=== PATIENT | female | born 1965 | race Caucasian/White ===

== ENCOUNTER 2017-01-05 14:08 | Outpatient (CLI) | payer MEDICARE | END 2017-01-05 14:09 | disposition critical access hospital (66) | LOC: EMS 14:08 | PROVIDERS: ATTEND Surgery | DX: J45.909 Unspecified asthma, uncomplicated (principal) | CPT/HCPCS: A0425; A0427 ==

== ENCOUNTER 2017-01-05 14:23 | Inpatient (IN) | payer MEDICARE ==
[~2017-01-05 14:23] MED LIST: AZITHROMYCIN INJ 500 MG in SODIUM CHLORIDE 0.9% 250 ML IV SCH
[2017-01-05] MEDS ORDERED: methylPREDNISolone SUCCINATE 125 MG/2 ML VIAL IVP STA (14:30)
[2017-01-05] MEDS ORDERED: IPRATROPIUM/ALBUTEROL 3 ML NEB INH STA (14:30)
--- NOTE | 2017-01-05 14:32 | ED Physician Documentation ---
PD HPI DYSPNEA - Stated complaint Stated Complaint: ASTHMA ATTACK - History obtained from History obtained from: Patient, EMS - History of Present Illness Timing - onset: Other (51-year-old woman with history of asthma, she says over the last few days her asthma has been exacerbated because she has had a URI and was kicked out of the shelters who has been not wandering the streets at night. She complains of shortness of breath and a dry cough but denies any chest pain or pedal edema. She has had subjective on-and-off fevers.) Review of Systems Ten Systems: 10 systems reviewed and negative Constitutional: reports: Fever, Chills, Myalgias. denies: Fatigue Nose: reports: Rhinorrhea / runny nose Throat: reports: Sore throat Cardiac: denies: Chest pain / pressure Respiratory: reports: Dyspnea, Cough GI: denies: Abdominal Pain PD PAST MEDICAL HISTORY - Past Medical History Past Medical History: Yes Respiratory: Asthma - Present Medications Home Medications: Ambulatory Orders Medication Instructions Recorded Confirmed No Known Home Medications [No 01/05/17 01/05/17 Known Home Medications] - Allergies Allergies/Adverse Reactions: Allergies Allergy/AdvReac Type Severity Reaction Status Date / Time tramadol Allergy Unknown Verified 01/05/17 14:35 - Living Situation Living Arrangement: reports: Homeless - Social History Does the pt smoke?: Yes Smoking Status: Current every day smoker - Family History Family history: reports: Non contributory PD ED PE NORMAL - Vitals Vital signs reviewed: Yes - General General: Alert and oriented X 3, No acute distress, Other (Somewhat agitated, potentially high on something.) - HEENT HEENT: PERRL, EOMI - Neck Neck: Supple, no meningeal sign, No bony TTP - Cardiac Cardiac: RRR, No murmur - Respiratory Respiratory: Other (Poor air motion with mild wheezes, labored breathing) - Abdomen Abdomen: Soft, Non tender - Back Back: No CVA TTP, No spinal TTP - Derm Derm: Normal color, Warm and dry - Extremities Extremities: No edema, No calf tenderness / cord - Neuro Neuro: Alert and oriented X 3, Normal speech - Psych Psych: Normal mood, Normal affect Results - Vitals Vitals: Vital Signs - 24 hr 01/05/17 01/05/17 01/05/17 14:29 14:30 14:45 Temperature 36.7 C Heart Rate 93 98 Respiratory 26 H 24 Rate Blood Pressure 184/102 H O2 Saturation 100 86 L 01/05/17 01/05/17 01/05/17 14:48 15:25 15:34 Temperature Heart Rate 108 H 98 Respiratory 22 22 Rate Blood Pressure O2 Saturation 100 99 01/05/17 01/05/17 01/05/17 15:55 16:10 16:26 Temperature Heart Rate 92 100 Respiratory 22 22 Rate Blood Pressure 195/95 H O2 Saturation 100 98 Oxygen O2 Source Nasal cannula Oxygen Flow Rate 2 - Labs Labs: Laboratory Tests 01/05/17 01/05/17 01/05/17 14:40 14:40 14:40 WBC 10.0 RBC 4.03 L Hgb 10.8 L Hct 32.8 L MCV 81.5 MCH 26.8 L MCHC 32.9 RDW 19.6 H Plt Count 426 MPV 6.3 L Neut # 8.4 H Lymph # 0.8 L [place] # 0.6 Eos # 0.1 Baso # 0.0 Absolute Nucleated RBC 0.00 Nucleated RBC % 0.0 D-Dimer 231.0 VBG pH VBG pCO2 VBG pO2 VBG HCO3 VBG Total CO2 VBG O2 Saturation VBG Base Excess Sodium 132 L Potassium 2.8 L Chloride 93 L Carbon Dioxide 29 Anion Gap 10.0 BUN 12 Creatinine 0.6 Estimated GFR (MDRD) 105 Glucose 120 H Calcium 8.9 Total Bilirubin 0.3 AST 54 H ALT 36 Alkaline Phosphatase 99 Total Protein 8.2 Albumin 3.8 Globulin 4.4 H Albumin/Globulin Ratio 0.9 L Lipase 81 H Urine Opiates Screen Ur Oxycodone Screen Urine Methadone Screen Ur Propoxyphene Screen Ur Barbiturates Screen Ur Tricyclics Screen Ur Phencyclidine Scrn Ur Amphetamine Screen U Methamphetamines Scrn U Benzodiazepines Scrn Urine Cocaine Screen U Cannabinoids Screen 01/05/17 01/05/17 15:47 16:56 WBC RBC Hgb Hct MCV MCH MCHC RDW Plt Count MPV Neut # Lymph # [place] # Eos # Baso # Absolute Nucleated RBC Nucleated RBC % D-Dimer VBG pH 7.437 H VBG pCO2 43.0 VBG pO2 98.7 H VBG HCO3 28.4 H VBG Total CO2 29.7 H VBG O2 Saturation 97.3 H VBG Base Excess 3.7 H Sodium Potassium Chloride Carbon Dioxide Anion Gap BUN Creatinine Estimated GFR (MDRD) Glucose Calcium Total Bilirubin AST ALT Alkaline Phosphatase Total Protein Albumin Globulin Albumin/Globulin Ratio Lipase Urine Opiates Screen NEGATIVE Ur Oxycodone Screen NEGATIVE Urine Methadone Screen NEGATIVE Ur Propoxyphene Screen NEGATIVE Ur Barbiturates Screen NEGATIVE Ur Tricyclics Screen NEGATIVE Ur Phencyclidine Scrn NEGATIVE Ur Amphetamine Screen NEGATIVE U Methamphetamines Scrn POSITIVE H U Benzodiazepines Scrn NEGATIVE Urine Cocaine Screen NEGATIVE U Cannabinoids Screen NEGATIVE - Rads (name of study) 2v chest Radiology: EMP read contemporaneously (LLL PNA) PD MEDICAL DECISION MAKING - ED course ED course: 51-year-old homeless woman with history of asthma presents with asthma exacerbation, fairly labored breathing. She received a DuoNeb in route, however it looks like the nebulizer in route may have been nonfunctional because most of the liquid was still in the chamber. This was repeated on arrival and given over the course of her ED stay a few more nebs with albuterol. She had evidence of pneumonia on chest x-ray and was administered Rocephin and Zithromax for this. She did have episodes of hypoxemia down into the mid 80s, the hospitalist was called for admission at 4:07 PM. - Critical Care Time(min): 35 Time Includes: Direct patient care, Review records, Reassess patient, Document care, Coordinate care, Medical consult Data interpretation: Labs Procedures included in critical care time: Peripheral IV Departure - Departure Disposition: 66 [facility] DC/Xfer Clinical Impression: Hypoxemia Asthma Qualifiers: Asthma severity: moderate Asthma persistence: persistent Asthma complication type: with status asthmaticus Qualified Code(s): J45.42 - Moderate persistent asthma with status asthmaticus Pneumonia Qualifiers: Pneumonia type: due to unspecified organism Laterality: left Lung location: lower lobe of lung Qualified Code(s): J18.1 - Lobar pneumonia, unspecified organism Condition: Serious Discharge Date/Time: 01/05/17 17:50
[2017-01-05 14:44] LABS: BASOPHILS % (AUTO) 0.5 %; EOSINOPHILS # (AUTO) 0.1 10^3/uL (0.0-0.7); EOSINOPHILS % (AUTO) 0.6 %; HCT - HEMATOCRIT 32.8 % (37.0-47.0); HGB - HEMOGLOBIN 10.8 g/dL (12.0-16.0); LYMPHOCYTES # (AUTO) 0.8 10^3/uL (1.5-3.5); LYMPHOCYTES % (AUTO) 8.4 %; MEAN CORPUSCULAR HEMOGLOBIN 26.8 pg (27.0-31.0); MEAN CORPUSCULAR HGB CONC 32.9 g/dL (32.0-36.0); MEAN CORPUSCULAR VOLUME 81.5 fL (81.0-99.0); MEAN PLATELET VOLUME 6.3 fL (7.9-10.8); MONOCYTES # (AUTO) 0.6 10^3/uL (0.0-1.0); MONOCYTES % (AUTO) 6.4 %; NEUTROPHILS # (AUTO) 8.4 10^3/uL (1.5-6.6); NEUTROPHILS % (AUTO) 84.1 %; RED BLOOD COUNT 4.03 10^6/uL (4.20-5.40); RED CELL DISTRIBUTION WIDTH 19.6 % (12.0-15.0)
[2017-01-05] MEDS ORDERED: methylPREDNISolone SUCCINATE 125 MG/2 ML VIAL ONE (14:53)
[2017-01-05] MEDS ORDERED: IPRATROPIUM/ALBUTEROL 3 ML NEB INH ONE (14:54)
[2017-01-05 15:04] LABS: ALBUMIN/GLOBULIN RATIO 0.9 (1.0-2.2); BILIRUBIN,TOTAL 0.3 mg/dL (0.2-1.0); CALCIUM 8.9 mg/dL (8.5-10.3); CREATININE 0.6 mg/dL (0.4-1.0); POTASSIUM 2.8 mmol/L (3.5-5.0); TOTAL PROTEIN 8.2 g/dL (6.7-8.2)
[2017-01-05] MEDS ORDERED: ALBUTEROL NEB 2.5 MG/3 ML INH STA ×2 (15:19→16:04)
[2017-01-05] MEDS ORDERED: ALBUTEROL NEB 2.5 MG/3 ML INH ONE ×2 (15:26→16:12)
[2017-01-05] MEDS ORDERED: POTASSIUM BICARB 25 MEQ TABLET PO STA (15:33)
[2017-01-05] MEDS ORDERED: POTASSIUM BICARB 25 MEQ TABLET PO ONE (15:42)
--- NOTE | 2017-01-05 15:59 | XRAY Preliminary Report ---
Exam: XR CHEST 2 VIEW PA/LAT IMPRESSION: Positive for a basilar opacity in the posterior left lower lobe, suspicious for pneumonia or aspiration. [facility] SITE ID: [id number]
--- NOTE | 2017-01-05 16:01 | XRAY Report ---
EXAM: CHEST RADIOGRAPHY EXAM DATE: 01/05/2017 03:18 PM. CLINICAL HISTORY: Dyspnea. COMPARISON: None. TECHNIQUE: 2 views. FINDINGS: Lungs/Pleura: The lateral image, there is patchy airspace opacity in the left lower lobe. No pleural effusion. There is airway thickening. Negative for pneumothorax. Mediastinum: Heart and mediastinal contours are unremarkable. Other: None. IMPRESSION: Positive for a basilar opacity in the posterior left lower lobe, suspicious for pneumonia or aspiration. [facility] Referring Provider Line: [phone] SITE ID: [id number]
[2017-01-05] MEDS ORDERED: AZITHROMYCIN INJ 500 MG in SODIUM CHLORIDE 0.9% 250 ML IV STA (16:04)
[2017-01-05] MEDS ORDERED: cefTRIAXone 2 GM in SODIUM CHLORIDE 0.9% MINIBAG 100 ML IV STA (16:04)
[2017-01-05] MEDS ORDERED: RACEPINEPHRINE 2.25% NEB INH STA (16:22)
[2017-01-05] MEDS ORDERED: cefTRIAXone 2 GM VIAL ONE (16:27)
[2017-01-05] MEDS ORDERED: RACEPINEPHRINE 2.25% NEB INH ONE (16:28)
[2017-01-05] MEDS ORDERED: SODIUM CHLORIDE INHALATION 3 ML NEB ONE (16:29)
[2017-01-05] MEDS ORDERED: ONDANSETRON 4 MG/2 ML VIAL IVP PRN (16:59)
[2017-01-05] MEDS ORDERED: ACETAMINOPHEN 325 MG TABLET PO PRN (16:59)
[2017-01-05 17:00] LABS: VBG BASE EXCESS 3.7 mmol/L (-2 - +2); VBG OXYGEN SATURATION 97.3 % (60-80); VBG PH 7.437 (7.31-7.41); VBG TOTAL CO2 29.7 mmol/L (24-29)
--- NOTE | 2017-01-05 17:11 | HISTORY & PHYSICAL EXAMINATION ---
Chief Complaint - Chief Complaint Chief Complaint: shortness of breath History of Present Illness - Admitted From Admitted From:: ER - History Obtained From History obtained from: Pt - History of Present Illness HPI Comment/Other: This is a 51-year-old Cauc[place] female with a past medical history significance for HTN, Asthma, who present ER for evaluation of shortness of breath. Pt report she was kicked out of the long-term for three days. In this three days, she was wandering in the street. She report she smoked methamphetamine on yesterday, she denies smoking today. She report she usually smokes cigarette about 1 pack per day, and drink alcohol but does not have abuse issue. Pt report she can not even go to the bathroom because she is so shorting of breath. She has been staying the door of the public bathroom today. Someone found her and call 911, then she is brought to ER. She report she had fever on and off for this three days. She had cough but without sputum. ABGs reveal unremarkable. Lab test found she had Potassium 2.8, Na 132, WBC 10, HGB 10.8. CXR indicates she had LLB pneumonia. UDS reveals positive methamphetamine. History - Past Medical History Cardiovascular: reports: Hypertension Respiratory: reports: Asthma MRSA Hx?: No - POLST Patient has POLST: No Meds/Allgy - Home Medications Home Medications: Ambulatory Orders Medication Instructions Recorded Confirmed No Known Home Medications [No 01/05/17 01/05/17 Known Home Medications] - Allergies Allergies/Adverse Reactions: Allergies Allergy/AdvReac Type Severity Reaction Status Date / Time tramadol Allergy Unknown Verified 01/05/17 14:35 Review of Systems - Constitutional Constitutional: reports: Fever, Chills. denies: Fatigue, Malaise, Weakness, Poor appetite, Diaphoresis, Night sweats, Weight gain, Weight loss - Eyes Eyes: denies: Pain, Irritation, Amaurosis, Blurred vision, Spots in vision, Field loss, Vision loss, Dipolpia - Ears, Nose & Throat Ears, Nose & Throat: reports: Nasal discharge, Nasal congestion. denies: Ear pain, Hearing loss, Hearing aids, Tinnitus, Vertigo, Nasal pain, Nosebleeds, Nasal obstruction, Postnasal drainage, Dentures, Sore throat, Hoarseness, Mouth lesions, Bleeding gums - Cardiovascular Cariovascular: denies: Irregular heart rate, Palpitations, Chest pain, Edema, Lightheadedness, Syncope, Exertional dyspnea, Decr. exercise tolerance - Respiratory Respiratory: reports: Cough, Wheezing, SOB at rest, SOB with exertion. denies: Sputum production, Snoring, Hemoptysis, Orthopnea - Gastrointestinal Gastrointestinal: denies: Abdominal pain, Abdominal distention, Constipation, Diarrhea, Change in bowel habits, Rectal bleeding, Black stools, Bloody stools, Nausea, Vomiting, Nitish blood emesis, Coffee grounds emesis, Reflux/heartburn, Poor appetite - Genitourinary Genitourinary: denies: Dysuria, Frequency, Urgency, Hematuria, Incontinence, Flank pain, Nocturia, Urethral discharge - Musculoskeletal Musculoskeletal: denies: Muscle pain, Back pain, Muscle aches, Stiffness, Limited range of motion, Muscle weakness, Gout, Joint pain - Integumentary Integumentary: denies: Pruritis, Lesions, Dryness, Lumps, Pigment changes - Neurological Neurological: denies: General weakness, Focal weakness, Headache, Dizziness, Numbness, Memory problems, Pre-existing deficit, Abnormal gait, Seizures, Incoordination, Slurred speech - Psychiatric Psychiatric: denies: Depression, Anxiety, Suicidal, Delusions, Hallucinations, Homicidal - Endocrine Endocrine: denies: Polyuria, Polydypsia, Polyphagia, Intolerance to cold - Hematologic/Lymphatic Hematologic/Lymphatic: denies: Anemia, Bruising, Petechiae, Blood clots, Lymphadenopathy, Bleeding tendencies, Recurrent infections Exam - Vital Signs Reviewed Vital Signs: Yes Vital Signs: Vital Signs x48h Temp Pulse Resp BP Pulse Ox 01/05/17 16:26 100 22 01/05/17 16:10 92 22 195/95 H 98 01/05/17 15:55 100 01/05/17 15:34 98 22 99 01/05/17 15:25 108 H 22 01/05/17 14:48 100 01/05/17 14:45 86 L 01/05/17 14:30 98 24 01/05/17 14:29 36.7 C 93 26 H 184/102 H 100 - Physical Exam General Appearance: positive: No acute distress, Alert. negative: Lethargic Eyes Bilateral: positive: Normal inspection, PERRL, No lid inflammation, Conjunctivae nml ENT: positive: ENT inspection nml, Pharynx nml, No signs of dehydration. negative: Purulent nasal drainage, Pharyngeal erythema, Oral lesions Neck: positive: Nml inspection, Thyroid nml, No JVD, Trachea midline. negative : Thyromegaly, Lymphadenopathy (R), Lymphadenopathy (L), Stiff neck, Carotid bruit, Swelling/bruising, Tracheal deviation Respiratory: positive: Chest non-tender, No respiratory distress, Wheezes, Rhonchi. negative: Rales Cardiovascular: positive: Regular rate & rhythm, No murmur, No gallop. negative : Irregularly irregular, Extrasystoles, Tachycardia, Bradycardia, Systolic murmur, Diastolic murmur Peripheral Pulses: positive: 2+ Abdomen: positive: Non-tender, No organomegaly, Nml bowel sounds, No distention. negative: Tenderness, Guarding, Rebound Back: positive: Nml inspection. negative: CVA tenderness (R), CVA tenderness (L ) Skin: positive: Color nml, No rash, Warm, Dry. negative: Diaphoresis, Pallor Extremities: positive: Non-tender, Full ROM, Nml appearance. negative: Calf tenderness, Joint swelling, Abimael's sign/cords Neurologic/Psychiatric: positive: Oriented x3, Motor nml, Sensation nml, Mood/ affect nml. negative: Sensory loss, Facial droop, Slurred/abnml speech Conclusion/Plan - Problem List (1) Shortness of breath Conclusion/Plan: pt appear asthma exacerbation and pneumonia test D-dimer, follow up Albuteral/Duoneb solu-metrol antibiotics for pneumonia O2 NC PRN, RT consult ABGs and follow up vital monitor (2) Asthma exacerbation Conclusion/Plan: pt is with hx of asthma, stay out of house for three nights and days. Asthma attack solu-medrol Albuteral Duoneb vital monitor O2 NC PRN (3) Pneumonia Conclusion/Plan: LLB pneumonia at CXR rocephin Azithyomycin blood culture, follow up daily lab, vital monitor Qualifiers: Pneumonia type: due to unspecified organism Laterality: left Lung location: lower lobe of lung Qualified Code(s): J18.1 - Lobar pneumonia, unspecified organism (4) Hypokalemia Conclusion/Plan: replace potassium recheck p level EKG PRN (5) HTN (hypertension) Conclusion/Plan: pt does not have any medication hydralazine and Clonidine PRN vital monitor (6) Currently smokes tobacco Conclusion/Plan: consult for pt quit smoking (7) Illicit drug use Conclusion/Plan: consult pt quit (8) DVT prophylaxis Conclusion/Plan: SCD and lovenox (9) Full code status Conclusion/Plan: pt request full code status - Lab Results Fish Bones: 01/05/17 14:40 01/05/17 14:40 Issues/Core Measures - Anticipated LOS Anticipated Stay Length: 2 or more midnights (expect 2 and more midnights)
[2017-01-05] MEDS: IPRATROPIUM/ALBUTEROL 3 ML NEB INH PRN (18:00)
[2017-01-05] MEDS: NICOTINE 21 MG PATCH TOP SCH (18:48)
[2017-01-05] MEDS: cloNIDine 0.1 MG TABLET PO PRN (18:51)
[2017-01-05] MEDS ORDERED: SODIUM CHLORIDE 0.9% 1,000 ML IV SCH (19:00)
[2017-01-05] MEDS: POTASSIUM CHLOR 10 MEQ/100 ML 10 MEQ/100 ML BAG IV SCH ×2 (19:55→22:27)
[2017-01-05] MEDS: ALBUTEROL NEB 2.5 MG/3 ML INH PRN (20:10)
[2017-01-05] MEDS ORDERED: SODIUM CHLORIDE INHALATION 3 ML NEB INH SCH (21:00)
[2017-01-05] MEDS ORDERED: LORazepam 2 MG/ML SYRINGE IVP PRN (21:01)
[2017-01-05] MEDS ORDERED: RACEPINEPHRINE 2.25% NEB INH SCH (21:01)
[2017-01-05] MEDS ORDERED: LORazepam 2 MG/ML SYRINGE IVP STA (21:01)
[2017-01-05] MEDS ORDERED: cloNIDine 0.1 MG TABLET PO STA (21:01)
[2017-01-05] MEDS: methylPREDNISolone SUCCINATE 40 MG/ML VIAL IVP SCH (21:17)
[2017-01-05] MEDS: SODIUM CHLORIDE FLUSH 0.9% 10 ML SYRINGE IVP SCH (21:18)
[2017-01-05] MEDS: SODIUM CHLORIDE FLUSH 0.9% 10 ML SYRINGE IVP PRN (21:18)
[2017-01-05] MEDS ORDERED: cloNIDine 0.1 MG TABLET PO SCH (21:32)
[2017-01-05] MEDS ORDERED: LORazepam 2 MG/ML SYRINGE IVP SCH (21:33)
[2017-01-06] MEDS: ALBUTEROL NEB 2.5 MG/3 ML INH PRN (00:20)
[2017-01-06] MEDS: methylPREDNISolone SUCCINATE 40 MG/ML VIAL IVP SCH ×3 (05:36→21:30)
[2017-01-06] MEDS: SODIUM CHLORIDE FLUSH 0.9% 10 ML SYRINGE IVP SCH ×3 (05:36→21:44)
[2017-01-06] MEDS: SODIUM CHLORIDE FLUSH 0.9% 10 ML SYRINGE IVP PRN (05:36)
[2017-01-06] MEDS: amLODIPine 5 MG TABLET PO SCH (07:57)
[2017-01-06] MEDS ORDERED: POTASSIUM CHLORIDE 20 MEQ TABLET PO SCH (08:00)
[2017-01-06] MEDS ORDERED: amLODIPine 5 MG TABLET ONE (08:01)
[2017-01-06] MEDS ORDERED: cefTRIAXone 1 GM VIAL IVP SCH (09:00)
[2017-01-06] MEDS: FAMOTIDINE 20 MG TABLET PO SCH (09:02)
[2017-01-06] MEDS: ENOXAPARIN 40 MG/0.4 ML SYRINGE SUBQ SCH (09:02)
[2017-01-06] MEDS: AZITHROMYCIN INJ 500 MG in SODIUM CHLORIDE 0.9% 250 ML IV SCH (09:03)
[2017-01-06] MEDS: POLYETHYLENE GLYCOL 3350 17 GM PACKET PO SCH (09:05)
--- NOTE | 2017-01-06 09:21 | PROVIDER PROGRESS NOTE ---
Subjective - Prog Note Date Prog Note Date: 01/06/17 Prog Note Time: 09:10 - Subjective Pt reports feeling: No change Subjective: Patient continues to complain of SOB, wheezing on exertion. She denies SOB, chest pain, N/V or a new cough. Current Medications - Current Medications Current Medications: Active Medications Generic Name Dose Route Start Last Admin Trade Name Freq PRN Reason Stop Dose Admin Acetaminophen 650 mg 01/05/17 16:59 Tylenol PO Q4HR PRN Pain 1 to 4 Albuterol 2.5 mg 01/05/17 17:06 01/06/17 00:20 INH 2.5 mg RTQ4H PRN Administration Wheezing Albuterol/Ipratropium 3 ml 01/05/17 17:06 01/05/17 18:00 Duoneb INH 3 ml Q4HR PRN Administration Wheezing Amlodipine Besylate 5 mg 01/06/17 09:00 01/06/17 07:57 Norvasc PO 5 mg DAILY CASSANDRA Administration Clonidine HCl 0.1 mg 01/05/17 17:46 01/05/17 18:51 Catapres PO 0.1 mg BID PRN Administration Hypertensive Emergency Enoxaparin Sodium 40 mg 01/06/17 09:00 01/06/17 09:02 Lovenox SUBQ 40 mg DAILY CASSANDRA Administration Famotidine 20 mg 01/06/17 09:00 01/06/17 09:02 Pepcid PO 20 mg DAILY CASSANDRA Administration Hydralazine HCl 10 mg 01/05/17 17:48 Apresoline Inj IVP TID PRN Hypertensive Emergency Azithromycin 500 mg/ Sodium 250 mls @ 250 mls/hr 01/06/17 09:00 01/06/17 09: 03 Chloride IV 250 mls/hr DAILY CASSANDRA Administration Ceftriaxone Sodium 1 gm/ 100 mls @ 200 mls/hr 01/06/17 10:00 Sodium Chloride IV DAILY@1000 CASSANDRA Lorazepam 1 mg 01/05/17 21:01 Ativan Inj IVP Q2HR PRN Anxiety Methylprednisolone 80 mg 01/05/17 22:00 01/06/17 05:36 Solu-Medrol (40mg Vial) IVP 80 mg TID CASSANDRA Administration Nicotine 1 patch 01/05/17 18:00 01/05/17 18:48 Nicoderm TOP 1 patch Q24H CASSANDRA Administration Ondansetron HCl 4 mg 01/05/17 16:59 Zofran Inj IVP Q6HR PRN Nausea / Vomiting Polyethylene Glycol 17 gm 01/06/17 09:00 01/06/17 09:05 Miralax PO 17 gm DAILY CASSANDRA Administration Potassium Chloride 60 meq 01/06/17 08:00 01/06/17 07:57 K-Dur PO 60 meq DAILYWM CASSANDRA Administration Sodium Chloride 10 ml 01/05/17 16:59 01/06/17 05:36 Normal Saline Flush 0.9% IVP 10 ml PRN PRN Administration NEEDED PER PROVIDER ORDERS Sodium Chloride 10 ml 01/05/17 22:00 01/06/17 05:36 Normal Saline Flush 0.9% IVP 10 ml Q8HR CASSANDRA Administration No Known Home Medications [No Known Home Medications] 01/05/17 Objective - Vital Signs/Intake & Output Reviewed Vital Signs: Yes Vital Signs: Vital Signs x48h Temp Pulse Pulse Resp BP Pulse Ox 01/06/17 07:23 37.3 C 114 H 20 200/91 H 97 01/06/17 06:00 37.0 C 101 H 20 166/98 H 100 Intake & Output: Intake & Output 01/03/17 01/04/17 01/05/17 01/06/17 23:59 23:59 23:59 23:59 Intake Total 200 740 Output Total 350 Balance -150 740 - Objective General Appearance: positive: No acute distress, Alert Eyes Bilateral: positive: Normal inspection, PERRL ENT: positive: ENT inspection nml, Pharynx nml, Dry mucous membranes Neck: positive: Nml inspection, Lymphadenopathy (R), Lymphadenopathy (L), Stiff neck Respiratory: positive: Chest non-tender, Wheezes, Rhonchi Cardiovascular: positive: Regular rate & rhythm, No gallop Abdomen: positive: Non-tender, No organomegaly, Nml bowel sounds, No distention Back: positive: Nml inspection Skin: positive: Color nml, Dry Extremities: positive: Non-tender, Full ROM, No pedal edema Neurologic/Psychiatric: positive: Oriented x3, Motor nml, Weakness, Sensory loss Reflexes: Bicep (R): 3+, Bicep (L): 3+ - Lab Results Fish Bones: 01/05/17 14:40 11/21/17 16:55 - Diagnostic Imaging Diagnostic Imaging Results: positive: Prelim report reviewed Assessment/Plan - Problem List (1) Shortness of breath Impression: According to night rounding MD, patient continued with near stridor sounding. Plan: Scheduled duo-nebs, IV steroids. (2) Asthma exacerbation Impression: Patient has a known history of asthma, but continues with tobacco abuse and smoking meth. Plan: (3) Pneumonia Impression: Chest x-ray in ER suggests left PNA in low lobe. Plan: On IV antibiotics per protocol. Need to obtain sputum culture. Qualifiers: Pneumonia type: due to unspecified organism Laterality: left Lung location: lower lobe of lung Qualified Code(s): J18.1 - Lobar pneumonia, unspecified organism (4) HTN (hypertension) Impression: Patient's B/P continue to be elevated with the highest value of 184/77. Plan: continue current medications. (5) Nicotine dependence Impression: Patient is known to be a life long smoker. Plan: Nicotine replacement via patch. Continue cessation. (6) Illicit drug use Impression: Patient admits to "smoking meth" prior to admission. Tested + in urine drug screen for meth. Plan: Continue cessation. (7) Hypokalemia Impression: K+ on admission was 2.6. Plan: PO replacement, recheck Potassium later today.
[2017-01-06] MEDS: hydrALAZINE INJ 20 MG/ML VIAL IVP PRN (09:22)
[2017-01-06] MEDS: cefTRIAXone 1 GM in SODIUM CHLORIDE 0.9% MINIBAG 100 ML IV SCH (10:33)
[2017-01-06] MEDS: IPRATROPIUM/ALBUTEROL 3 ML NEB INH PRN (10:44)
[2017-01-06] MEDS: cloNIDine 0.1 MG TABLET PO PRN (16:56)
[2017-01-06] MEDS: NICOTINE 21 MG PATCH TOP SCH (17:00)
[2017-01-07] MEDS: hydrALAZINE INJ 20 MG/ML VIAL IVP PRN ×2 (00:10→08:17)
[2017-01-07] MEDS: methylPREDNISolone SUCCINATE 40 MG/ML VIAL IVP SCH (06:16)
[2017-01-07] MEDS: SODIUM CHLORIDE FLUSH 0.9% 10 ML SYRINGE IVP SCH (06:17)
[2017-01-07] MEDS: SODIUM CHLORIDE FLUSH 0.9% 10 ML SYRINGE IVP PRN ×3 (08:20→10:40)
[2017-01-07 09:10] LABS: BASOPHILS % (AUTO) 0.1 %; HGB - HEMOGLOBIN 10.8 g/dL (12.0-16.0); LYMPHOCYTES # (AUTO) 0.3 10^3/uL (1.5-3.5); LYMPHOCYTES % (AUTO) 1.2 %; MEAN CORPUSCULAR HEMOGLOBIN 26.1 pg (27.0-31.0); MEAN CORPUSCULAR HGB CONC 31.9 g/dL (32.0-36.0); MEAN CORPUSCULAR VOLUME 81.8 fL (81.0-99.0); MEAN PLATELET VOLUME 6.8 fL (7.9-10.8); MONOCYTES # (AUTO) 0.2 10^3/uL (0.0-1.0); MONOCYTES % (AUTO) 1.1 %; NEUTROPHILS # (AUTO) 21.7 10^3/uL (1.5-6.6); NEUTROPHILS % (AUTO) 97.6 %; RED BLOOD COUNT 4.15 10^6/uL (4.20-5.40); RED CELL DISTRIBUTION WIDTH 20.6 % (12.0-15.0); UNCORRECTED WHITE BLOOD COUNT 22.2 x10^3/uL; WHITE BLOOD COUNT 22.2 x10^3/uL (4.8-10.8)
[2017-01-07 09:18] LABS: ALBUMIN/GLOBULIN RATIO 0.7 (1.0-2.2); BILIRUBIN,TOTAL 0.5 mg/dL (0.2-1.0); CALCIUM 9.4 mg/dL (8.5-10.3); CREATININE 0.7 mg/dL (0.4-1.0); MAGNESIUM 1.2 mg/dL (1.7-2.8); PHOSPHORUS 2.2 mg/dL (2.5-4.6); POTASSIUM 3.8 mmol/L (3.5-5.0); TOTAL PROTEIN 7.7 g/dL (6.7-8.2)
[2017-01-07 09:35] VITALS: BP 153/78
[2017-01-07] MEDS: amLODIPine 5 MG TABLET PO SCH (09:35)
[2017-01-07] MEDS: FAMOTIDINE 20 MG TABLET PO SCH (09:35)
[2017-01-07] MEDS: AZITHROMYCIN INJ 500 MG in SODIUM CHLORIDE 0.9% 250 ML IV SCH (09:35)
[2017-01-07] MEDS: ENOXAPARIN 40 MG/0.4 ML SYRINGE SUBQ SCH (09:36)
[2017-01-07] MEDS: POLYETHYLENE GLYCOL 3350 17 GM PACKET PO SCH (09:37)
[2017-01-07 09:50] LABS: NP AUTO DIFFERENTIAL? NO; NP MAN DIFFERENTIAL? YES
[2017-01-07] MEDS ORDERED: cefTRIAXone 1 GM VIAL ONE (10:51)
[2017-01-07] MEDS: cefTRIAXone 1 GM in SODIUM CHLORIDE 0.9% MINIBAG 100 ML IV SCH (10:53)
--- NOTE | 2017-01-07 11:07 | Discharge Plan ---
Discharge Plan Disposition: 01 Home, Self Care Condition: Serious Prescriptions: Ipratropium/Albuterol [Duoneb] 3 ml INH Q4HR PRN #30 neb PRN Reason: Wheezing Albuterol 2.5 mg INH RTQ4H PRN #30 neb PRN Reason: Wheezing amLODIPine [Norvasc] 5 mg PO DAILY #30 tablet cloNIDine [Catapres] 0.1 mg PO BID #60 tablet Doxycycline Calcium [Vibramycin] 100 mg PO BID 7 Days #14 ml Nicotine 21 mg Patch [Nicoderm] 1 patch TOP Q24H #30 patch Diet: Regular Activity Restrictions: No Restrictions Shower Restrictions: No Driving Restrictions: No Weight Bearing: Full Weight Instruction Topics: Asthma Additional Instructions or Follow Up instructions: Please see your PCP later this week. Use your nebulizers that I prescribed. Please take 7 more days of antibiotics. Please take your steroids and avoid stopping them all at once. Do not smoke or use other inhalants. No Smoking: If you smoke, Please STOP! Call for help.
--- NOTE | 2017-01-07 11:08 | DISCHARGE SUMMARY ---
Discharge Summary Code Status: Attempt Resuscitation Condition at Discharge: Serious Discharge Disposition: 01 Home, Self Care - DIAGNOSES Admission Diagnoses: Shortness of breath (R06.02) Asthma exacerbation (J45.901) Pneumonia (J18.9) HTN (hypertension) (I10) Cigarette smoker (F17.210) Illicit drug use (F19.90) Discharge Diagnoses with Status of Each Condition: Pneumonia (J18.9) Asthma exacerbation (J45.901) HTN (hypertension) (I10) Cigarette smoker (F17.210) Illicit drug use (F19.90) Hypokalemia (E87.6) Shortness of breath (R06.02) - HPI History of Present Illness: HPI Per Timi Castillo: This is a 51-year-old [place] female with a past medical history significance for HTN, Asthma, who present ER for evaluation of shortness of breath. Pt [facility]. In this three days, she was wandering in the street. She report she smoked methamphetamine on yesterday, she denies smoking today. She report she usually smokes cigarette about 1 pack per day, and drink alcohol but does not have abuse issue. Pt report she can not even go to the bathroom because she is so shorting of breath. She has been staying the door of the public bathroom today. Someone found her and call 911, then she is brought to ER. She report she had fever on and off for this three days. She had cough but without sputum. ABGs reveal unremarkable. Lab test found she had Potassium 2.8, Na 132, WBC 10, HGB 10.8. CXR indicates she had LLB pneumonia. UDS reveals positive methamphetamine. - ALLERGIES Allergies/Adverse Reactions: Allergies Allergy/AdvReac Type Severity Reaction Status Date / Time tramadol Allergy Unknown Verified 01/05/17 14:35 - MEDICATIONS Home Medications: Ambulatory Orders Medication Instructions Recorded Confirmed Albuterol 2.5 mg INH RTQ4H PRN #30 neb 01/07/17 Doxycycline Calcium [Vibramycin] 100 mg PO BID 7 Days #14 ml 01/07/17 Ipratropium/Albuterol [Duoneb] 3 ml INH Q4HR PRN #30 neb 01/07/17 Losartan Potassium 25 mg PO DAILY #30 01/07/17 01/06/17 Nicotine 21 mg Patch [Nicoderm] 1 patch TOP Q24H #30 patch 01/07/17 amLODIPine [Norvasc] 5 mg PO DAILY #30 tablet 01/07/17 cloNIDine [Catapres] 0.1 mg PO BID #60 tablet 01/07/17 - LABS Result Diagrams: 01/07/17 08:48 01/07/17 08:48
[2017-01-07] MEDS ORDERED: DOXYCYCLINE 100 MG TABLET PO SCH (12:00)
[2017-01-07] MEDS ORDERED: predniSONE 20 MG TABLET PO SCH (12:00)
[2017-01-07] MEDS ORDERED: methylPREDNISolone SUCCINATE 40 MG/ML VIAL IVP SCH (13:00)
[2017-01-08] MEDS ORDERED: LOSARTAN 50 MG TABLET PO SCH (09:00)
== END 2017-01-07 12:00 | disposition home or self-care (01) | DRG 194 ==
LOC: ED 14:23 → MS2 16:59
PROVIDERS: ADMIT Nurse Practitioner Gerontology; ATTEND Nurse Practitioner
DX: J18.1 Lobar pneumonia, unspecified organism (principal); J45.901 Unspecified asthma with (acute) exacerbation; E87.6 Hypokalemia; I10 Essential (primary) hypertension; F17.210 Nicotine dependence, cigarettes, uncomplicated; Z59.0 Homelessness; Z72.89 Other problems related to lifestyle
CPT/HCPCS: 36415; 71020; 80053; 80306; 82150; 82803; 83605; 83690; 83735; 84100; 84132; 84443; 85025; 85379; 87040; 94640; 96365; 96375; 99284; 99291

== ENCOUNTER 2017-01-25 05:53 | Emergency (ER) | payer MEDICARE ==
[2017-01-25] MEDS ORDERED: IPRATROPIUM/ALBUTEROL 3 ML NEB INH STA (05:56)
[2017-01-25] MEDS ORDERED: predniSONE 20 MG TABLET PO STA (05:56)
--- NOTE | 2017-01-25 05:59 | ED Physician Documentation ---
PD HPI DYSPNEA - Stated complaint Stated Complaint: WHEEZING - History obtained from History obtained from: Patient, EMS - History of Present Illness Timing - onset: Chronic Timing - onset during: Rest Timing - details: Abrupt onset, Still present Inciting event(s): URI Associated symptoms: Cough Similar symptoms before: Work up / diagnostics Recently seen: Admitted - Additional information Additional information: Patient is a 51 year old homeless female with a history of asthma who is presenting to the emergency department for shortness of breath. patient states that it came on early this morning. patient states that she recently had pneumonia so was worried. Patient called ems. ems treated the patient with duoneb while enroute. Upon initial evaluation in the emergency department patient was feeling a bit better. Patient appeared to be on a sympathomimetic. Patient reported that her blood pressures were always high, normally 200s over 100s. Review of Systems Constitutional: denies: Fever, Chills Eyes: reports: Reviewed and negative Ears: reports: Reviewed and negative Nose: reports: Reviewed and negative Throat: reports: Reviewed and negative Cardiac: reports: Reviewed and negative Respiratory: reports: Dyspnea, Cough, Wheezing GI: reports: Reviewed and negative : reports: Reviewed and negative Skin: denies: Rash, Lesions Musculoskeletal: denies: Neck pain, Back pain Neurologic: reports: Reviewed and negative Psychiatric: reports: Hallucinations (history of auditory hallucinations) PD PAST MEDICAL HISTORY - Past Medical History Cardiovascular: Hypertension Respiratory: Asthma Neuro: None Endocrine/Autoimmune: None GI: None : None HEENT: None Psych: None Musculoskeletal: None Derm: None - Past Surgical History Past Surgical History: No - Present Medications Home Medications: Ambulatory Orders Medication Instructions Recorded Confirmed Albuterol 2.5 mg INH RTQ4H PRN #30 neb 01/07/17 01/25/17 Doxycycline Calcium [Vibramycin] 100 mg PO BID 7 Days #14 ml 01/07/17 01/25/17 Ipratropium/Albuterol [Duoneb] 3 ml INH Q4HR PRN #30 neb 01/07/17 01/25/17 Losartan Potassium 25 mg PO DAILY #30 01/07/17 01/25/17 amLODIPine [Norvasc] 5 mg PO DAILY #30 tablet 01/07/17 01/25/17 cloNIDine [Catapres] 0.1 mg PO BID #60 tablet 01/07/17 01/25/17 Albuterol Sulfate [Proventil Hfa 1 - 2 puffs INH Q4H PRN #1 inhaler 01/25/17 Inhaler] predniSONE [Prednisone] 40 mg PO DAILY 5 Days tablet 01/25/17 - Allergies Allergies/Adverse Reactions: Allergies Allergy/AdvReac Type Severity Reaction Status Date / Time tramadol Allergy Unknown Verified 01/25/17 05:59 - Social History Does the pt smoke?: Yes Smoking Status: Current every day smoker Does the pt drink ETOH?: Yes Does the pt have substance abuse?: No - Immunizations Immunizations are current?: No - POLST Patient has POLST: No PD ED PE NORMAL - Vitals Vital signs reviewed: Yes - General General: Alert and oriented X 3 - HEENT HEENT: Atraumatic - Neck Neck: No JVD - Abdomen Abdomen: Soft - Derm Derm: Normal color, Warm and dry - Extremities Extremities: No deformity, No calf tenderness / cord - Neuro Neuro: Alert and oriented X 3, No motor deficit, No sensory deficit, Normal speech Eye Opening: Spontaneous Motor: Obeys Commands Verbal: Oriented GCS Score: 15 - Psych Psych: Normal mood PD ED PE EXPANDED - HEENT HEENT: Dry mucous membranes - Cardiac Cardiac: Tachy - Respiratory Respiratory: Wheezing, Right upper lobe, Right middle lobe, Right lower lobe, Left upper lobe, Left lower lobe. No: Labored, Accessory mm use - Psych Psych: Auditory hallucinations Results - Vitals Vitals: Vital Signs - 24 hr 01/25/17 01/25/17 01/25/17 05:54 06:10 06:11 Temperature 36.6 C Heart Rate 93 84 62 Respiratory 28 H 20 27 H Rate Blood Pressure 183/118 H 193/115 H O2 Saturation 99 97 01/25/17 06:45 Temperature Heart Rate 106 H Respiratory 26 H Rate Blood Pressure O2 Saturation 98 Oxygen O2 Source Room air - Rads (name of study) chest x-ray Radiology: Final report received (no acute abnormality) PD MEDICAL DECISION MAKING - ED course Complexity details: reviewed old records, reviewed results, re-evaluated patient , considered differential, d/w patient ED course: Patient was seen and examined at bedside. patient was treated with additional duonebs and steriods. imaging was ordered. When patient returned the results were reviewed. there were no acute abnormalities. Patient refused repeat nebulizer treatments. Patient was not hypoxic, but was found drinking alcohol in her room. patient required no further work up and was stable for discharge with outpatient follow up. Departure - Departure Disposition: 01 Home, Self Care Clinical Impression: Asthma Condition: Good Instructions: Asthma Dc Follow-Up: primary,care provider [Other] [facility] [Provider Group] Prescriptions: Albuterol Sulfate [Proventil Hfa Inhaler] 1 - 2 puffs INH Q4H PRN #1 inhaler PRN Reason: Shortness Of Air/Wheezing predniSONE [Prednisone] 40 mg PO DAILY 5 Days tablet Comments: Your symptoms today are being caused by an asthma exacerbation. There is no acute pneumonia on your chest x-ray. You will be on steroids for the next 4 days and prescription for an inhaler has been written. You should follow up with the [facility] for further care. You should avoid smoking or other triggers. You may return to the emergency department at any time for new , worsening or uncontrollable symptoms. Discharge Date/Time: 01/25/17 07:43
[2017-01-25 06:11] VITALS: BP 193/115
[2017-01-25] MEDS ORDERED: predniSONE 20 MG TABLET ONE ×2 (06:14→06:16)
[2017-01-25] MEDS ORDERED: IPRATROPIUM/ALBUTEROL 3 ML NEB INH ONE (06:19)
--- NOTE | 2017-01-25 07:18 | XRAY Preliminary Report ---
Exam: XR CHEST 2 VIEW PA/LAT IMPRESSION: No acute pulmonary abnormality. Increased lung volumes suggesting underlying obstructive pulmonary disease. [facility] SITE ID: [id number]
--- NOTE | 2017-01-25 07:20 | XRAY Report ---
EXAM: CHEST RADIOGRAPHY EXAM DATE: 01/25/2017 07:09 AM. CLINICAL HISTORY: Wheezing, recent pneumonia. COMPARISON: 01/05/2017. TECHNIQUE: 2 views. FINDINGS: Lungs/Pleura: Increased lung volumes. No focal opacities evident. No pleural effusion. No pneumothora x. Normal volumes. Mediastinum: Heart and mediastinal contours are unremarkable. Other: None. IMPRESSION: No acute pulmonary abnormality. Increased lung volumes suggesting underlying obstructive pulmonary disease. [facility] Referring Provider Line: [phone] SITE ID: [id number]
== END 2017-01-25 07:43 | disposition home or self-care (01) ==
LOC: EDUNIT# → ED 05:53
DX: J45.909 Unspecified asthma, uncomplicated (principal); I10 Essential (primary) hypertension; Z59.0 Homelessness; F17.200 Nicotine dependence, unspecified, uncomplicated
CPT/HCPCS: 71020; 94640; 99283; J7512; J7620

== ENCOUNTER 2017-01-25 10:38 | Outpatient (CLI) | payer MEDICARE, MEDICAID | END 2017-01-25 10:39 | disposition critical access hospital (66) | LOC: EMS 10:38 | PROVIDERS: ATTEND Surgery | DX: R06.00 Dyspnea, unspecified (principal) | CPT/HCPCS: A0425; A0427 ==

== ENCOUNTER 2017-01-30 23:44 | Outpatient (CLI) | payer MEDICARE, MEDICAID | END 2017-01-30 23:45 | disposition critical access hospital (66) | LOC: EMS 23:44 | PROVIDERS: ATTEND Surgery | DX: R06.2 Wheezing (principal); R06.00 Dyspnea, unspecified | CPT/HCPCS: A0425; A0427 ==

== ENCOUNTER 2017-01-30 23:59 | Emergency (ER) | payer MEDICARE, MEDICAID ==
--- NOTE | 2017-01-31 00:34 | ED Physician Documentation ---
PD HPI DYSPNEA - Stated complaint Stated Complaint: ASTHMA - Chief complaint Chief Complaint: Resp - History obtained from History obtained from: Patient, EMS - History of Present Illness Timing - onset: How many hours ago (3-4 hours [employer]) Timing - onset during: Light activity Timing - duration: Hours Timing - details: Abrupt onset, Waxing and waning Pain level now: 0 Improved by: Inhaler/neb, Rest Worsened by: Exertion Associated symptoms: Cough, Wheezing. No: Fever, Chest pain / discomfort Similar symptoms before: Diagnosis (asthma) Recently seen: Emergency Dept - Additional information Additional information: c/o wheezing, dyspnea x few hours c/w previous episodes of asthma. She was admitted to [facility] last month for pneumonia. She also was evaluated 5 days ago in this ED for similar symptoms, was prescribed an inhaler and 5 days of prednisone. However, she says she finished the steroids "a few days ago" (per patient) and the pharmacy refused to fill the inhaler prescription, she does not know why. When I explained the steroids were 5 days supply written five days ago and thus she should have just finished them earlier today, she does not know why this is, either. She says, "maybe I didn't take them right". Review of Systems Constitutional: denies: Fever, Chills, Sweats Cardiac: denies: Chest pain / pressure Respiratory: reports: Dyspnea, Cough, Wheezing GI: denies: Abdominal Pain PD PAST MEDICAL HISTORY - Past Medical History Past Medical History: Yes Cardiovascular: Hypertension Respiratory: Asthma Neuro: None Endocrine/Autoimmune: None GI: None : None HEENT: None Psych: None Musculoskeletal: None Derm: None - Past Surgical History Past Surgical History: No - Present Medications Home Medications: Ambulatory Orders Medication Instructions Recorded Confirmed Albuterol Sulf [Ventolin Hfa 1 - 2 puffs INH Q4HR PRN #1 inhaler 01/31/17 Inhaler] predniSONE [Prednisone] 40 mg PO DAILY 4 Days #8 tablet 01/31/17 - Allergies Allergies/Adverse Reactions: Allergies Allergy/AdvReac Type Severity Reaction Status Date / Time tramadol Allergy Unknown Verified 01/31/17 00:19 - Social History Does the pt smoke?: Yes Smoking Status: Current every day smoker Does the pt drink ETOH?: Yes Does the pt have substance abuse?: No - Immunizations Immunizations are current?: No - POLST Patient has POLST: No PD ED PE NORMAL - Vitals Vital signs reviewed: Yes - General General: Alert and oriented X 3, No acute distress, Well developed/nourished - Cardiac Cardiac: RRR, No murmur - Respiratory Respiratory: Clear bilaterally, Other (tachypneic and intermittently stridorous , although there is a strong distractable component to both the stridor and tachypnea) - Abdomen Abdomen: Soft, Non tender Results - Vitals Vitals: Vital Signs - 24 hr 01/30/17 01/31/17 01/31/17 23:59 00:55 01:19 Temperature 37 C Heart Rate 102 H 83 75 Respiratory 16 18 20 Rate Blood Pressure 122/95 H 167/100 H O2 Saturation 98 100 01/31/17 01/31/17 01/31/17 01:49 02:33 03:42 Temperature Heart Rate 99 79 86 Respiratory 20 24 16 Rate Blood Pressure 185/94 H 164/82 H 167/99 H O2 Saturation 99 95 96 01/31/17 05:03 Temperature 36.4 C L Heart Rate 87 Respiratory 18 Rate Blood Pressure 160/86 H O2 Saturation 97 Oxygen O2 Source Room air PD MEDICAL DECISION MAKING - ED course Complexity details: reviewed old records, re-evaluated patient, considered differential, d/w patient ED course: Patient reported improvement with duoneb en route (given by EMS) and further improvement with xopenex in ED. I offered a third treatment because of the tachypnea and intermittent stridor, but she declined due to feeling jittery. She was observed in the ED for several hours (mostly waiting until AM so she could call her parents for a ride). Departure - Departure Disposition: 01 Home, Self Care Clinical Impression: Asthma Qualifiers: Asthma severity: moderate Asthma persistence: unspecified Asthma complication type: with acute exacerbation Qualified Code(s): J45.901 - Unspecified asthma with (acute) exacerbation Condition: Good Instructions: ED Reactive Airway Disease Follow-Up: [facility] [Provider Group] [facility] [Provider Group] Prescriptions: Albuterol Sulf [Ventolin Hfa Inhaler] 1 - 2 puffs INH Q4HR PRN #1 inhaler PRN Reason: Shortness Of Air/Wheezing predniSONE [Prednisone] 40 mg PO DAILY 4 Days #8 tablet Discharge Date/Time: 01/31/17 05:27
[2017-01-31] MEDS ORDERED: LEVALBUTEROL 1.25 MG/0.5 ML NEB INH STA (00:54)
[2017-01-31] MEDS ORDERED: predniSONE 20 MG TABLET PO STA (00:54)
[2017-01-31 05:04] VITALS: BP 160/86
== END 2017-01-31 05:27 | disposition home or self-care (01) ==
LOC: EDUNIT# → ED 23:59
DX: J45.901 Unspecified asthma with (acute) exacerbation (principal); I10 Essential (primary) hypertension; F17.200 Nicotine dependence, unspecified, uncomplicated
CPT/HCPCS: 94640; 99283; 99284; A9270; J7512

== ENCOUNTER 2017-04-27 11:30 | Outpatient (CLI) | payer MEDICARE, MEDICAID | END 2017-04-27 11:31 | disposition EMS.NT | LOC: EMS 11:30 | PROVIDERS: ATTEND Surgery | DX: Z03.89 Encounter for observation for other suspected diseases and conditions ruled out (principal) ==

== ENCOUNTER 2017-06-09 10:00 | Outpatient (CLI) | payer MEDICARE, MEDICAID | END 2017-06-09 10:01 | disposition critical access hospital (66) | LOC: EMS 10:00 | PROVIDERS: ATTEND Surgery | DX: R53.1 Weakness (principal); R42 Dizziness and giddiness | CPT/HCPCS: A0425; A0427 ==

== ENCOUNTER 2017-06-09 10:17 | Observation (INO) | payer MEDICARE, MEDICAID ==
[2017-06-09 11:20] LABS: BASOPHILS % (AUTO) 0.9 %; EOSINOPHILS % (AUTO) 0.8 %; LYMPHOCYTES % (AUTO) 12.2 %; MEAN CORPUSCULAR HEMOGLOBIN 19.6 pg (27.0-31.0); MEAN CORPUSCULAR HGB CONC 28.6 g/dL (32.0-36.0); MEAN CORPUSCULAR VOLUME 68.3 fL (81.0-99.0); MEAN PLATELET VOLUME 6.5 fL (7.9-10.8); MONOCYTES % (AUTO) 6.3 %; NEUTROPHILS % (AUTO) 79.8 %; PLT - PLATELET COUNT 254 10^3/uL (130-450); RED BLOOD COUNT 2.72 10^6/uL (4.20-5.40); RED CELL DISTRIBUTION WIDTH 23.2 % (12.0-15.0); WHITE BLOOD COUNT 6.3 x10^3/uL (4.8-10.8)
[2017-06-09 11:25] LABS: HGB - HEMOGLOBIN 5.3 g/dL (12.0-16.0)
[2017-06-09 11:28] LABS: ALBUMIN 3.6 g/dL (3.2-5.5); ALBUMIN/GLOBULIN RATIO 0.8 (1.0-2.2); BILIRUBIN,TOTAL 0.4 mg/dL (0.2-1.0); CALCIUM 8.5 mg/dL (8.5-10.3); CREATININE 0.6 mg/dL (0.4-1.0)
[2017-06-09] MEDS ORDERED: SODIUM CHLORIDE 0.9% 1,000 ML IV ONE (11:30)
[2017-06-09 11:38] LABS: ABNORMAL LYMPHS % (MANUAL) 0 %; BAND NEUTROPHILS % (MANUAL) 0 %
[2017-06-09 11:40] LABS: EOSINOPHILS # (MANUAL) 0.1 10^3/uL (0-0.7); LYMPHOCYTES # (MANUAL) 0.3 10^3/uL (1.5-3.5); LYMPHOCYTES % (MANUAL) 5 %; MONOCYTES # (MANUAL) 0.4 10^3/uL (0.0-1.0); NEUTROPHILS # (MANUAL) 5.5 10^3/uL (1.5-6.6); NEUTROPHILS % (MANUAL) 87 %
[2017-06-09 11:43] LABS: DIFFERENTIAL COMMENT MANUAL DIFFERENTIAL
[2017-06-09 11:49] LABS: BILIRUBIN,URINE NEGATIVE (NEGATIVE); GLUCOSE, URINE (UA) NEGATIVE (NEGATIVE); KETONES,URINE (UA) NEGATIVE (NEGATIVE); LEUKOCYTE ESTERASE, URINE NEGATIVE (NEGATIVE); NITRITE,URINE NEGATIVE (NEGATIVE); OCCULT BLOOD,URINE NEGATIVE (NEGATIVE); PROTEIN,URINE NEGATIVE (NEGATIVE); UROBILINOGEN,URINE 0.2 (NORMAL) E.U./dL (NORMAL)
[2017-06-09 11:51] LABS: CLARITY,URINE CLEAR (CLEAR)
--- NOTE | 2017-06-09 13:49 | ED Physician Documentation ---
History of Present Illness - Stated complaint Stated Complaint: DEHYDRATION - Chief complaint Chief Complaint: General - History obtained from History obtained from: Patient, EMS - Additonal information Additional information: The patient is a 52-year-old female who arrives via ambulance after becoming dizzy with lightheadedness this morning while at work. She felt as if she might faint, but did not lose consciousness. She has felt increasingly fatigued recently, spending most of yesterday in bed. She denies fever, chest pain, cough, abdominal pain, nausea, vomiting, or dysuria. She denies any change in the color of her stools. She denies vaginal bleeding. She reports past history of anemia requiring blood transfusion, but does not know the reason for her anemia. Further past medical history is significant for hypertension and COPD. She still smokes cigarettes. She admits to using alcohol, but denies use of other drugs. Review of Systems Constitutional: reports: Fatigue, Other (Lightheadedness.). denies: Fever, Weight Loss Eyes: denies: Decreased vision Ears: reports: Ear pain (Left ear.) Nose: denies: Congestion Throat: denies: Sore throat Cardiac: denies: Chest pain / pressure, Palpitations Respiratory: denies: Dyspnea, Cough GI: denies: Abdominal Pain, Nausea, Vomiting : denies: Dysuria, Vaginal bleeding Skin: denies: Rash Musculoskeletal: denies: Back pain, Extremity pain Neurologic: reports: Generalized weakness, Headache (Very mild.). denies: Focal weakness, Numbness PD PAST MEDICAL HISTORY - Past Medical History Cardiovascular: Hypertension Respiratory: COPD Neuro: None Endocrine/Autoimmune: None GI: None : None HEENT: None Psych: None Musculoskeletal: None Derm: None - Past Surgical History Past Surgical History: No - Present Medications Home Medications: Ambulatory Orders Medication Instructions Recorded Confirmed Albuterol Sulf [Ventolin Hfa 1 - 2 puffs INH Q4HR PRN #1 inhaler 01/31/17 Inhaler] predniSONE [Prednisone] 40 mg PO DAILY 4 Days #8 tablet 01/31/17 - Allergies Allergies/Adverse Reactions: Allergies Allergy/AdvReac Type Severity Reaction Status Date / Time tramadol Allergy Unknown Verified 06/09/17 10:37 - Social History Does the pt smoke?: Yes Smoking Status: Current every day smoker Does the pt drink ETOH?: Yes Does the pt have substance abuse?: No - Immunizations Immunizations are current?: No - POLST Patient has POLST: No PD ED PE NORMAL - Vitals Vital signs reviewed: Yes (systolic hypertension initially) - General General: Alert and oriented X 3, Other (Frail appearing.) - HEENT HEENT: Atraumatic, PERRL, EOMI, Pharynx benign, Other (Left tympanic membrane dull and bulging, with decreased hearing compared to right.) - Neck Neck: Supple, no meningeal sign, No JVD, Other (Mild left anterior cervical adenopathy.) - Cardiac Cardiac: RRR, No murmur - Respiratory Respiratory: No respiratory distress, Clear bilaterally - Abdomen Abdomen: Soft, Non tender - Rectal Rectal: Other (Heme neg. stool.) - Back Back: No CVA TTP - Derm Derm: No rash - Extremities Extremities: No edema, No calf tenderness / cord - Neuro Neuro: Alert and oriented X 3, No motor deficit, No sensory deficit PD ED PE EXPANDED - Rectal Rectal: Heme Occult Neg - QC+ Results - Vitals Vitals: Vital Signs - 24 hr 06/09/17 06/09/17 10:28 11:55 Temperature 36.8 C Heart Rate 88 96 Respiratory 16 16 Rate Blood Pressure 152/79 H 177/89 H O2 Saturation 100 100 Oxygen O2 Source Room air - Labs Labs: Laboratory Tests 06/09/17 06/09/17 06/09/17 11:10 11:10 11:10 WBC 6.3 RBC 2.72 L Hgb 5.3 L* Hct 18.6 L* MCV 68.3 L MCH 19.6 L MCHC 28.6 L RDW 23.2 H Plt Count 254 MPV 6.5 L Neut # Not Reportable Lymph # Not Reportable Carroll # Not Reportable Eos # Not Reportable Baso # Not Reportable Absolute Nucleated RBC Not Reportable Total Counted 100 Band Neuts % (Manual) 0 Abnorm Lymph % (Manual) 0 Nucleated RBC % Not Reportable Neutrophils # (Manual) 5.5 Lymphocytes # (Manual) 0.3 L Monocytes # (Manual) 0.4 Eosinophils # (Manual) 0.1 Basophils # (Manual) 0.0 Nucleated RBCs 1 Differential Comment MANUAL DIFFERENTIAL Manual Slide Review Indicated RBC Morph Micro Appear TARGET CELLS Sodium 134 L Potassium 2.9 L Chloride 100 L Carbon Dioxide 24 Anion Gap 10.0 BUN 14 Creatinine 0.6 Estimated GFR (MDRD) 105 Glucose 84 Calcium 8.5 Total Bilirubin 0.4 AST 64 H ALT 43 Alkaline Phosphatase 89 Total Protein 8.0 Albumin 3.6 Globulin 4.4 H Albumin/Globulin Ratio 0.8 L Lipase 46 Urine Color Urine Clarity Urine pH Ur Specific [place] Urine Protein Urine Glucose (UA) Urine Ketones Urine Occult Blood Urine Nitrite Urine Bilirubin Urine Urobilinogen Ur Leukocyte Esterase Ur Microscopic Review Urine Culture Comments Slides for Path Review Blood Type Blood Type Recheck O POSITIVE Antibody Screen Crossmatch IS Only 06/09/17 06/09/17 11:35 11:45 WBC RBC Hgb Hct MCV MCH MCHC RDW Plt Count MPV Neut # Lymph # Carroll # Eos # Baso # Absolute Nucleated RBC Total Counted Band Neuts % (Manual) Abnorm Lymph % (Manual) Nucleated RBC % Neutrophils # (Manual) Lymphocytes # (Manual) Monocytes # (Manual) Eosinophils # (Manual) Basophils # (Manual) Nucleated RBCs Differential Comment Manual Slide Review RBC Morph Micro Appear Sodium Potassium Chloride Carbon Dioxide Anion Gap BUN Creatinine Estimated GFR (MDRD) Glucose Calcium Total Bilirubin AST ALT Alkaline Phosphatase Total Protein Albumin Globulin Albumin/Globulin Ratio Lipase Urine Color YELLOW Urine Clarity CLEAR Urine pH 7.0 Ur Specific [place] 1.010 Urine Protein NEGATIVE Urine Glucose (UA) NEGATIVE Urine Ketones NEGATIVE Urine Occult Blood NEGATIVE Urine Nitrite NEGATIVE Urine Bilirubin NEGATIVE Urine Urobilinogen 0.2 (NORMAL) Ur Leukocyte Esterase NEGATIVE Ur Microscopic Review NOT INDICATED Urine Culture Comments NOT INDICATED Slides for Path Review Blood Type O POSITIVE Blood Type Recheck Antibody Screen NEGATIVE Crossmatch IS Only See Detail PD MEDICAL DECISION MAKING - ED course Complexity details: reviewed results, re-evaluated patient, considered differential, d/w patient, d/w senior erp consultant ED course: The patient's presentation is most significant for profound anemia with a hemoglobin of 5.3, hematocrit 18.6. It is a microcytic anemia. There is no known evidence of acute blood loss, with no vomiting, heme-negative stool, and no history of vaginal bleeding. Further lab results reveal hypokalemia with potassium of 2.9. In addition to the above, her physical examination reveals purulent left otitis media. Treatment in the emergency department included administration of normal saline IV, oral and IV potassium, and institution of packed red blood cell transfusion. I discussed her condition with Dr. Bella, who accepts her for further evaluation and treatment. Departure - Departure Disposition: ED Place in Observation Clinical Impression: Hypokalemia Profound anemia Qualifiers: Anemia type: unspecified type Qualified Code(s): D64.9 - Anemia, unspecified Left otitis media Qualifiers: Otitis media type: unspecified Qualified Code(s): H66.92 - Otitis media, unspecified, left ear Condition: Stable
[2017-06-09] MEDS ORDERED: POTASSIUM CHLORIDE 20 MEQ TABLET PO STA (14:00)
[2017-06-09] MEDS ORDERED: POTASSIUM CHLOR 10 MEQ/100 ML 10 MEQ/100 ML BAG IV ONE (14:00)
--- NOTE | 2017-06-09 14:26 | HISTORY & PHYSICAL EXAMINATION ---
Chief Complaint - Chief Complaint Chief Complaint: dizziness History of Present Illness - Admitted From Admitted From:: ED - History Obtained From Records Reviewed: yes History obtained from: chart review, patient Exam Limitations: none - History of Present Illness HPI Comment/Other: Mónica Nieto is a mildly unkept 52-year old white female with a past medical history of methamphedamine use, alcohol use, tobacco dependence, dental caries, recent left ear ottis media, hypertension, COPD, PTSD, depression and a history of homelessness. She presented to the ED with progressive dizziness that began about 3-4 days ago. Associated symptoms include, severe mouth pain related to dental caries, palpitations, and describes this as, "it feels like my heart is racing". She admits to times of recent shortness of breath that is exacerbated by walking. Once in the ED labs show profound anemia with a hemoglobin of just 5.3, a low potassium at 2.9, and an elevated AST at 64. She denies recent illness, nausea, vomiting, bleeding, or head injuries. She will be admitted to our observation unit for further RBC replacement and monitoring. History - Past Medical History Cardiovascular: reports: Hypertension Respiratory: reports: COPD, Shortness of breath Neuro: reports: None Endocrine/Autoimmune: reports: None GI: reports: None : reports: None HEENT: reports: Other (left ear infection, chronic dental caries.) Psych: reports: None Musculoskeletal: reports: Osteoarthritis (neck, bilateral shoulders, bilateral hips.) Derm: reports: None MRSA Hx?: No - Family & Social History Family History: Mother: Alive and Well, Hypertension, Father: Alive and Well, Hypertension, Brother: Alive and Well Living arrangement: At home Living Situation: Alone Social History Notes: The patient just moved back to the [place] about 2-3 months due to housing needs. She has had recent times of homelessness, but resides in an apartment for right now. Her parents are alive and well and have custody of her 12-year old daughter. She states that she does not have a PCP, dental care, or a phone. She also states that she has no friends, or anyone she can count on here on the [place]. She does not currently work and states that she has been "retired for quite some time". 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 She denies illicit drug use. She states that she drinks alcohol daily, and uses tobacco (5-15 cigarettes daily) x at least 35 years. She wishes to be a [employer]. - Substance History Use: Uses substance without health or social issues: Tobacco Use Issues: Mood Disorder Abuse: Recurrent use of substance despite neg consequences: NONE Dependence: Experiences withdrawal or developed tolerances: Tobacco Dependence Issues: Mood Disorder Tobacco Details: Cigarettes - POLST Patient has POLST: No POLST Status: Full Code Meds/Allgy - Home Medications Home Medications: Ambulatory Orders Medication Instructions Recorded Confirmed Ibuprofen [Motrin] 400 mg PO Q6H PRN 06/09/17 06/09/17 - Allergies Allergies/Adverse Reactions: Allergies Allergy/AdvReac Type Severity Reaction Status Date / Time tramadol Allergy Unknown Verified 06/09/17 10:37 Review of Systems - Constitutional Constitutional: reports: Fatigue, Poor appetite (related to inability to chew as her teeth are severly decayed.) - Ears, Nose & Throat Ears, Nose & Throat: reports: Ear pain (recent left ear infection- no antibiotics.), Mouth lesions, Dental decay, Dental pain - Cardiovascular Cariovascular: reports: Palpitations, Lightheadedness, Exertional dyspnea, Decr. exercise tolerance - Respiratory Respiratory: reports: SOB with exertion - Musculoskeletal Musculoskeletal: reports: Muscle aches, Joint pain, Joint swelling - Integumentary Integumentary: reports: Pruritis (scattered "scabbed areas" found on BUE.), Dryness - Neurological Neurological: reports: General weakness, Dizziness, Pre-existing deficit - Psychiatric Psychiatric: reports: Depression, Other (PTSD r/t homelessness) - Hematologic/Lymphatic Hematologic/Lymphatic: reports: Anemia, Recurrent infections (dental pain) - All Other Systems All Other Systems: reports: Reviewed and negative Exam - Vital Signs Reviewed Vital Signs: Yes Vital Signs: Vital Signs x48h Temp Pulse Resp BP Pulse Ox 06/09/17 14:20 37.2 C 82 15 191/95 H 06/09/17 14:15 37 C 90 15 171/96 H 06/09/17 11:55 96 16 177/89 H 100 06/09/17 10:28 36.8 C 88 16 152/79 H 100 - Physical Exam General Appearance: positive: Alert, Moderate distress, Anxious Eyes Bilateral: positive: Normal inspection (wandering pupils-bilaterally.) ENT: positive: Dry mucous membranes, Other (obvious dental caries, mild odor.) Neck: positive: Nml inspection, Lymphadenopathy (R), Lymphadenopathy (L), Stiff neck Respiratory: positive: Chest non-tender, No respiratory distress, Wheezes, Rhonchi Cardiovascular: positive: Regular rate & rhythm, No gallop, Tachycardia, Systolic murmur, Decreased pulse(s) Peripheral Pulses: positive: 1+ Abdomen: positive: Non-tender, No organomegaly, Nml bowel sounds Skin: positive: Color nml (slightly bronze without jaundice.), No rash, Warm, Dry Extremities: positive: Non-tender, Full ROM, Nml appearance, No pedal edema Neurologic/Psychiatric: positive: Oriented x3, CN's nml (2-12), Sensation nml, Weakness, Sensory loss, Slurred/abnml speech (related to dental caries.), Depressed mood/affect Reflexes: Bicep (R): 3+, Bicep (L): 3+ Conclusion/Plan - Problem List (1) Tobacco dependence Conclusion/Plan: The patient admits to 5-15 cigarettes per day x35 years. She states she has no interest in quitting and refuses a nicotine patch when asked. Plan: Continue to encourage cessation and offer nicotine patch. (2) Hypokalemia Conclusion/Plan: The patient has a known history of this and was found to have a low potassium of 2.9 upon admission to ED. She was given oral replacement due to lack of IV access. Plan: Monitor electrolytes and encourage PO intake. (3) Profound anemia Conclusion/Plan: The patient's primary complaint upon arrival to the ED was dizziness. She denies tarry, black stools or recent bleeding. She admits to poor nutritional intake due to dental decay. She was found to have a low hemoglobin at 5.3 and a Hct of 18.6 once in the ED and given 1 unit of PRBCs that was still infusing when she arrived to the nursing floor. Plan: Give a total of 3 units, and do iron studies, B12 and folate testing. Qualifiers: Anemia type: unspecified type Qualified Code(s): D64.9 - Anemia, unspecified (4) HTN (hypertension) Conclusion/Plan: The patient has been having high blood pressures since the time of admission. She does not take antihypertensives at home. A daily dose of Norvasc, and a clonidine patch was added and will be titrated based on vital sign readings. Plan: Continue Norvasc and Clonidine patch. Qualifiers: Hypertension type: unspecified secondary hypertension Qualified Code(s): I15.9 - Secondary hypertension, unspecified; I15 - Secondary hypertension - Lab Results Lab results reviewed: Yes Fish Bones: 06/10/17 06:14 06/09/17 11:10 - Diagnostic Imaging Results Diagnostic Imaging Results: positive: Prelim report reviewed, Final report reviewed - EKG Results EKG Interpreted Independently: Yes Core Measures - Anticipated LOS I expect patient to be DC'd or transferred within 96 hours.: Yes - DVT/VTE - Prophylaxis VTE/DVT Device ordered at admit?: Yes VTE/DVT Prophylaxis med ordered at admit?: Yes - Stroke - Rehab Assessment Rehab services assessment to be ordered?: No Not Ordered - Medical Reason: Contraindicated - AMI - Statin at Admit Aspirin Prescribed on Admit: Yes
[2017-06-09] MEDS ORDERED: LEVALBUTEROL 1.25 MG/3 ML NEB INH PRN (14:50)
[2017-06-09] MEDS ORDERED: LEVALBUTEROL 1.25 MG/3 ML NEB INH SCH (15:00)
[2017-06-09 15:20] LABS: MUDS CUTOFF CONCENTRATIONS CUTOFF CONC BELOW:
[2017-06-09 15:34] LABS: AMPHETAMINE SCREEN,URINE NEGATIVE (NEGATIVE); BENZODIAZEPINES SCREEN, URINE NEGATIVE (NEGATIVE); COCAINE SCREEN URINE NEGATIVE (NEGATIVE); METHADONE SCREEN, URINE NEGATIVE (NEGATIVE); METHAMPHETAMINES SCREEN, URINE NEGATIVE (NEGATIVE); OPIATE SCREEN, URINE NEGATIVE (NEGATIVE); OXYCODONE SCREEN, URINE NEGATIVE (NEGATIVE); PROPOXYPHENE SCREEN, URINE NEGATIVE (NEGATIVE); TRICYCLIC ANTIDEPRESSANT,URINE NEGATIVE (NEGATIVE)
[2017-06-09] MEDS ORDERED: POTASSIUM CHLORIDE 20 MEQ TABLET PO ONE (15:58)
[2017-06-09] MEDS: amLODIPine 5 MG TABLET PO SCH (16:05)
[2017-06-09] MEDS: CLINDAMYCIN 150 MG CAPSULE PO SCH (16:13)
[2017-06-09] MEDS: SODIUM CHLORIDE FLUSH 0.9% 10 ML SYRINGE IVP PRN ×2 (16:15→21:33)
[2017-06-09] MEDS: HYDROmorphone 1 MG/ML CARPUJECT IVP PRN ×2 (16:15→21:32)
[2017-06-09] MEDS ORDERED: ACETAMINOPHEN 325 MG TABLET PO SCH (17:41)
[2017-06-09] MEDS ORDERED: diphenhydrAMINE 25 MG CAPSULE PO SCH (17:43)
[2017-06-09] MEDS ORDERED: cloNIDine 0.1 MG PATCH TOP SCH (19:00)
[2017-06-09] MEDS: SODIUM CHLORIDE FLUSH 0.9% 10 ML SYRINGE IVP SCH (21:39)
[2017-06-09] MEDS ORDERED: FUROSEMIDE 40 MG/4 ML VIAL IVP SCH (22:12)
[2017-06-09] MEDS ORDERED: SODIUM CHLORIDE FLUSH 0.9% 10 ML SYRINGE ONE (22:28)
[2017-06-09] MEDS ORDERED: FUROSEMIDE 40 MG/4 ML VIAL ONE (22:28)
[2017-06-09] MEDS ORDERED: SPIRONOLACTONE 25 MG TABLET PO ONE (22:28)
[2017-06-09] MEDS: SPIRONOLACTONE 25 MG TABLET PO SCH (22:39)
[2017-06-10] MEDS: CLINDAMYCIN 150 MG CAPSULE PO SCH ×3 (00:19→12:52)
[2017-06-10] MEDS: HYDROmorphone 1 MG/ML CARPUJECT IVP PRN (00:51)
[2017-06-10] MEDS: SODIUM CHLORIDE FLUSH 0.9% 10 ML SYRINGE IVP PRN ×2 (00:52→07:42)
[2017-06-10] MEDS: cloNIDine 0.1 MG TABLET PO PRN ×4 (02:32→07:42)
[2017-06-10] MEDS: SODIUM CHLORIDE FLUSH 0.9% 10 ML SYRINGE IVP SCH ×2 (02:34→07:42)
[2017-06-10] MEDS ORDERED: diazePAM INJ 5 MG/ML SYRINGE IVP PRN (05:55)
[2017-06-10 06:23] LABS: HGB - HEMOGLOBIN 9.3 g/dL (12.0-16.0); MEAN CORPUSCULAR HEMOGLOBIN 23.1 pg (27.0-31.0); MEAN CORPUSCULAR VOLUME 74.5 fL (81.0-99.0); MEAN PLATELET VOLUME 6.6 fL (7.9-10.8); RED BLOOD COUNT 4.01 10^6/uL (4.20-5.40); RED CELL DISTRIBUTION WIDTH 24.4 % (12.0-15.0); WHITE BLOOD COUNT 6.1 x10^3/uL (4.8-10.8)
[2017-06-10 06:47] LABS: CREATININE 0.8 mg/dL (0.4-1.0)
[2017-06-10 07:07] LABS: FOLATE 18.94 ng/mL (5.90 - >24.8)
[2017-06-10] MEDS: SPIRONOLACTONE 25 MG TABLET PO SCH (07:42)
[2017-06-10] MEDS: amLODIPine 5 MG TABLET PO SCH (07:42)
[2017-06-10] MEDS ORDERED: POLYETHYLENE GLYCOL 3350 17 GM PACKET PO SCH (09:00)
[2017-06-10] MEDS ORDERED: METOPROLOL SUCCINATE 50 MG TABLET PO SCH (12:00)
--- NOTE | 2017-06-10 12:13 | Discharge Plan ---
Discharge Plan Disposition: Home, Self Care Condition: Good Prescriptions: Clindamycin [Cleocin] 450 mg PO Q6HR 20 Days #240 capsule amLODIPine [Norvasc] 5 mg PO DAILY #30 tablet Ferrous Gluconate 324 mg PO BID #60 tablet Metoprolol Succinate [Toprol Xl] 50 mg PO DAILY #30 tablet oxyCODONE/ACET 5/325 [Percocet 5 mg/325 mg] 2 each PO Q6H PRN #42 tablet PRN Reason: Mouth Sore Pain Saccharomyces Boulardii [Florastor] 250 mg PO BID 20 Days #40 capsule Diet: Regular Activity Restrictions: No Restrictions Shower Restrictions: No Driving Restrictions: No Weight Bearing: Full Weight Additional Instructions or Follow Up instructions: You were admitted to treat your anemia as your red blood cells were extremely low, which likely caused your dizziness. You were found to have a high blood pressure, so you should now take a new medication called metoprolol. This agent was chosen because of your echocardiogram findings, which will control your blood pressure and keep your heart rate down. Also, you should take a new medication called Norvasc to further control your blood pressure. To help you build up your blood supply, please take an iron supplement. I will treat you for your dental infections and left ear infection, please take an antibiotic for this x 20 days. Please see a PCP within one week and work on cutting back on the substances that you use including tobacco and alcohol. No Smoking: If you smoke, Please STOP! Call for help.
--- NOTE | 2017-06-10 12:35 | DISCHARGE SUMMARY ---
Discharge Summary Admit Date: 06/09/17 Discharge Date: 06/10/17 Discharging Provider: YOSELIN Resendiz Primary Care Provider: none Code Status: Attempt Resuscitation Condition at Discharge: Good Discharge Disposition: 01 Home, Self Care - DIAGNOSES Admission Diagnoses: Hypokalemia (E87.6) Anemia (D64.9) Tobacco dependence (F17.200) Discharge Diagnoses with Status of Each Condition: Hypokalemia (E87.6)- resolved. Tobacco dependence (F17.200)- chronic, encouraged cessation. Mixed anemia- iron deficiency and anemia of chronic disease (D50.9)- poor nutrition and chronic dental decay played a role in anemia. Dental caries (K02.9)- chronic, treatment to continue. Moderate pulmonary HTN- newly found on this admission, new medications prescribed. - HPI History of Present Illness: Mónica Nieto is a mildly unkept 52-year old white female with a past medical history of methamphedamine use, alcohol use, tobacco dependence, dental caries, recent left ear ottis media, hypertension, COPD, PTSD, depression and a history of homelessness. She presented to the ED with progressive dizziness that began about 3-4 days ago. Associated symptoms include, severe mouth pain related to dental caries, palpitations, and describes this as, "it feels like my heart is racing". She admits to times of recent shortness of breath that is exacerbated by walking. Once in the ED labs show profound anemia with a hemoglobin of just 5.3, a low potassium at 2.9, and an elevated AST at 64. She denies recent illness, nausea, vomiting, bleeding, or head injuries. She will be admitted to our observation unit for further RBC replacement and monitoring. - HOSPITAL COURSE Hospital Course: The following diagnoses were prevalent during this hospital stay: (1) Tobacco dependence- The patient admits to 5-15 cigarettes per day x35 years. She states she has no interest in quitting and refuses a nicotine patch when asked. Plan: The patient was encouraged smoking cessation and offered a nicotine patch at the time of discharge. She was counseled as continued tobacco dependence can worsen her heart function and lead to further dental decay. (2) Hypokalemia- The patient has a known history of this and was found to have a low potassium of 2.9 upon admission to ED. She was given oral replacement due to lack of IV access. At the time of discharge, her potassium was normalized and she was encouraged good oral intake. (3) Profound anemia- The patient's primary complaint upon arrival to the ED was dizziness. She denies tarry, black stools or recent bleeding. She admits to poor nutritional intake due to dental decay. She was found to have a low hemoglobin at 5.3 and a Hct of 18.6 that improved to 9.3 & 29.9 respectively. A total of 3 units were administered and iron studies were inconclusive since she had received blood product. No source of bleeding is suspected and this may be a mixed anemia (iron deficiency and chronic disease) due to the patient' s ongoing dental decay. (4) HTN (hypertension)- The patient has been having high blood pressures since the time of admission. She does not take antihypertensives at home. A daily dose of Norvasc, and a clonidine patch was added and will be titrated based on vital sign readings. Upon discharge, metoprolol and norvasc were prescribed based on echo results. (5) Moderate pulmonary HTN- Based on echo results, the patient has elevated right heart pressures with an RVSP at rest of 49mmHg. This is likely due to her past drug abuse and current life long tobacco dependence. She was started on a beta clif at discharge. Disposition: The patient was given a list of PCPs and encouraged to follow up within one week with the addition of antihypertensives, antibiotics and ongoing dental decay. The patient was in stable condition and admitted to feeling increased energy and wellness at the time of discharge. She did not require oxygen and was instructed to continue the antibiotics for her dental decay and given a small amount of narcotics for the mouth pain. - ALLERGIES Allergies/Adverse Reactions: Allergies Allergy/AdvReac Type Severity Reaction Status Date / Time tramadol Allergy Unknown Verified 06/09/17 10:37 - MEDICATIONS Home Medications: Ambulatory Orders Medication Instructions Recorded Confirmed Ibuprofen [Motrin] 400 mg PO Q6H PRN 06/09/17 06/09/17 Clindamycin [Cleocin] 450 mg PO Q6HR 20 Days #240 capsule 06/10/17 Ferrous Gluconate 324 mg PO BID #60 tablet 06/10/17 Metoprolol Succinate [Toprol Xl] 50 mg PO DAILY #30 tablet 06/10/17 Saccharomyces Boulardii [Florastor] 250 mg PO BID 20 Days #40 capsule 06/10/17 amLODIPine [Norvasc] 5 mg PO DAILY #30 tablet 06/10/17 oxyCODONE/ACET 5/325 [Percocet 5 2 each PO Q6H PRN #42 tablet 06/10/17 mg/325 mg] - PHYSICAL EXAM AT DISCHARGE General Appearance: positive: No acute distress, Alert, Anxious Eyes Bilateral: positive: Normal inspection ENT: positive: Pharyngeal erythema, Oral lesions, Dry mucous membranes, Other ( advanced dental decay.) Neck: positive: Nml inspection, No JVD, Lymphadenopathy (R), Lymphadenopathy (L) , Stiff neck Respiratory: positive: Chest non-tender, No respiratory distress, Breath sounds nml Cardiovascular: positive: Regular rate & rhythm, No gallop, Systolic murmur, Decreased pulse(s) Peripheral Pulses: positive: 1+ Abdomen: positive: Non-tender, No organomegaly, Nml bowel sounds, No distention Skin: positive: No rash, Warm, Dry Extremities: positive: Non-tender, Full ROM, Nml appearance, No pedal edema Neurologic/Psychiatric: positive: Oriented x3, CN's nml (2-12), Motor nml, Sensation nml, Depressed mood/affect Reflexes: Bicep (R): 3+, Bicep (L): 3+ - LABS Result Diagrams: 06/10/17 06:14 06/10/17 06:14 - DIAGNOSTIC IMAGING Diagnostic Imaging Results: Final report reviewed Diagnostic Imaging Results Comments: ECHOCARDIOGRAM FINAL: 06/10/17 1. Moderate to severe LVH with normal systolic function, EF of 65%. There is moderate diastolic dysfunction and the left atrium is severely dilated. 2. Normal RV size and function. There is moderate pulmonary HTN, with an RVSP at rest of 49mmHg. 3. No vegetation or suspicious valve abnormality is seen. - FOLLOW UP Follow Up: Disposition: Home, Self Care Condition: Good Prescriptions: Clindamycin [Cleocin] 450 mg PO Q6HR 20 Days #240 capsule amLODIPine [Norvasc] 5 mg PO DAILY #30 tablet Ferrous Gluconate 324 mg PO BID #60 tablet Metoprolol Succinate [Toprol Xl] 50 mg PO DAILY #30 tablet oxyCODONE/ACET 5/325 [Percocet 5 mg/325 mg] 2 each PO Q6H PRN #42 tablet PRN Reason: Mouth Sore Pain Saccharomyces Boulardii [Florastor] 250 mg PO BID 20 Days #40 capsule Diet: Regular Activity Restrictions: No Restrictions Shower Restrictions: No Driving Restrictions: No Weight Bearing: Full Weight Additional Instructions or Follow Up instructions: You were admitted to treat your anemia as your red blood cells were extremely low, which likely caused your dizziness. You were found to have a high blood pressure, so you should now take a new medication called metoprolol. This agent was chosen because of your echocardiogram findings, which will control your blood pressure and keep your heart rate down. Also, you should take a new medication called Norvasc to further control your blood pressure. To help you build up your blood supply, please take an iron supplement. I will treat you for your dental infections and left ear infection, please take an antibiotic for this x 20 days. Please see a PCP within one week and work on cutting back on the substances that you use including tobacco and alcohol. - TIME SPENT Time Spent in Discharge (Minutes): 50
[2017-06-10 14:03] VITALS: BP 158/92
== END 2017-06-10 13:06 | disposition home or self-care (01) ==
LOC: EDUNIT# → ED 10:17 → OBS 14:01
PROVIDERS: ADMIT Nurse Practitioner; ATTEND Nurse Practitioner
DX: D50.9 Iron deficiency anemia, unspecified (principal); D53.9 Nutritional anemia, unspecified; H66.42 Suppurative otitis media, unspecified, left ear; E87.6 Hypokalemia; K02.9 Dental caries, unspecified; I27.20 Pulmonary hypertension, unspecified; J44.9 Chronic obstructive pulmonary disease, unspecified; I15.9 Secondary hypertension, unspecified; F17.210 Nicotine dependence, cigarettes, uncomplicated; F32.9 Major depressive disorder, single episode, unspecified; F43.10 Post-traumatic stress disorder, unspecified
CPT/HCPCS: 36415; 36430; 80048; 80053; 80306; 81003; 82607; 82746; 83540; 83690; 84466; 85025; 85027; 86850; 86900; 86901; 86920; 93306; 96361; 96365; 96375; 96376; 99284; A9270; G0378; J1170; P9016; 81001; 82270; 87086

== ENCOUNTER 2017-09-01 21:57 | Outpatient (CLI) | payer MEDICARE, MEDICAID | END 2017-09-01 21:58 | disposition critical access hospital (66) | LOC: EMS 21:57 | PROVIDERS: ATTEND Surgery | DX: R42 Dizziness and giddiness (principal); R11.0 Nausea; R26.2 Difficulty in walking, not elsewhere classified | CPT/HCPCS: A0425; A0429; A0999 ==

== ENCOUNTER 2017-09-01 22:16 | Emergency (ER) | payer MEDICARE, MEDICAID ==
--- NOTE | 2017-09-02 02:33 | ED Physician Documentation ---
PD HPI ALTERED MENTAL STATUS - Stated complaint Stated Complaint: NAUSEA/DIZZY - Chief complaint Chief Complaint: General - History obtained from History obtained from: Patient, EMS - History of Present Illness Timing - onset: Today Timing - details: Gradual onset, Still present Quality / character: Less responsive Contributing factors: Intoxicated, Substance abuse Basline status: Alert and oriented X 3 Similar symptoms before: Work up / diagnostics Recently seen: Not recently seen - Additional information Additional information: Patient is a 52 year old female with a history of drug abuse who is presenting to the emergency department for altered mental status. According to patient and ems patient had "a beer" and then smoked some marijuana. patient felt dizzy so she called ems who brought the patient in for evaluation. Review of Systems Unable to obtain: Intoxicated PD PAST MEDICAL HISTORY - Past Medical History Past Medical History: Yes Cardiovascular: Hypertension Respiratory: COPD, Shortness of breath Endocrine/Autoimmune: None GI: None : None HEENT: Other Psych: None Musculoskeletal: Osteoarthritis Derm: None - Past Surgical History Past Surgical History: No - Present Medications Home Medications: Ambulatory Orders Medication Instructions Recorded Confirmed Ibuprofen [Motrin] 400 mg PO Q6H PRN 06/09/17 06/09/17 Clindamycin [Cleocin] 450 mg PO Q6HR 20 Days #240 capsule 06/10/17 Ferrous Gluconate 324 mg PO BID #60 tablet 06/10/17 Metoprolol Succinate [Toprol Xl] 50 mg PO DAILY #30 tablet 06/10/17 Saccharomyces Boulardii [Florastor] 250 mg PO BID 20 Days #40 capsule 06/10/17 amLODIPine [Norvasc] 5 mg PO DAILY #30 tablet 06/10/17 oxyCODONE/ACET 5/325 [Percocet 5 2 each PO Q6H PRN #42 tablet 06/10/17 mg/325 mg] - Allergies Allergies/Adverse Reactions: Allergies Allergy/AdvReac Type Severity Reaction Status Date / Time tramadol Allergy Unknown Verified 06/09/17 10:37 - Social History Does the pt smoke?: Yes Smoking Status: Current every day smoker Does the pt drink ETOH?: Yes Does the pt have substance abuse?: No - Immunizations Immunizations are current?: No - POLST Patient has POLST: No POLST Status: Full Code PD ED PE NORMAL - Vitals Vital signs reviewed: Yes - General General: No acute distress - HEENT HEENT: Atraumatic - Cardiac Cardiac: RRR - Respiratory Respiratory: No respiratory distress - Abdomen Abdomen: Non distended - Extremities Extremities: No deformity - Neuro Neuro: No motor deficit PD ED PE EXPANDED - General General: Disheveled, poorly kept - HEENT HEENT: Dry mucous membranes Results - Vitals Vitals: Vital Signs - 24 hr 09/01/17 09/02/17 09/02/17 22:20 01:29 03:02 Temperature 35.8 C L 36.3 C L 36.8 C Heart Rate 66 77 78 Respiratory 18 16 16 Rate Blood Pressure 132/80 H 152/109 H 142/77 H O2 Saturation 97 96 100 Oxygen O2 Source Room air PD MEDICAL DECISION MAKING - ED course Complexity details: reviewed old records, reviewed results, re-evaluated patient , considered differential, d/w patient ED course: Patient was seen and examined at bedside. Patient was observed for a few hours in the emergency department. Patient ate and drank without difficulty. Upon discharge patient was awake and alert. Patient was able to attend to conversation and ambulate without difficulty. Alexandranet required no further inpatient work up and was stable for discharge with outpatient follow up. - Sepsis Event Vital Signs: Vital Signs - 24 hr 09/01/17 09/02/17 09/02/17 22:20 01:29 03:02 Temperature 35.8 C L 36.3 C L 36.8 C Heart Rate 66 77 78 Respiratory 18 16 16 Rate Blood Pressure 132/80 H 152/109 H 142/77 H O2 Saturation 97 96 100 Oxygen O2 Source Room air Departure - Departure Disposition: 01 Home, Self Care Clinical Impression: Polysubstance abuse, Illicit drug use Condition: Good Instructions: ED Drug Abuse General Follow-Up: primary,care provider [Other] - As Needed Comments: You should refrain from excessive drug and alcohol abuse. you should follow up with your doctor if you desire treatment/rehabilitation. you may return to the emergency department for new, worsening or uncontrollable symptoms.
[2017-09-02 03:02] VITALS: BP 142/77
== END 2017-09-02 03:04 | disposition home or self-care (01) ==
LOC: EDUNIT# → ED 22:16
DX: F19.90 Other psychoactive substance use, unspecified, uncomplicated (principal); I10 Essential (primary) hypertension; F17.200 Nicotine dependence, unspecified, uncomplicated
CPT/HCPCS: 99283; 99284

== ENCOUNTER 2017-12-09 11:23 | Outpatient (CLI) | payer MEDICARE, MEDICAID | END 2017-12-09 11:24 | disposition critical access hospital (66) | LOC: EMS 11:23 | PROVIDERS: ATTEND Surgery | DX: R42 Dizziness and giddiness (principal); R53.1 Weakness | CPT/HCPCS: A0425; A0429; A0999 ==

== ENCOUNTER 2017-12-09 12:00 | Emergency (ER) | payer MEDICAID, MEDICARE ==
--- NOTE | 2017-12-09 12:37 | ED Physician Documentation ---
PD HPI NVD - Stated complaint Stated Complaint: DIZZY - Chief complaint Chief Complaint: Neuro - History obtained from History obtained from: Patient - History of Present Illness Timing - onset: How many days ago (4-5) Timing - duration: Days (5) Timing - details: Abrupt onset (she felt flu-like with fevers, chills, nausea and vomiting, diarrhea, some congestion starting 5 days ago. The vomiting and diarrhea stopped but she continues with myalgias, fatigue and nausea. history of anemia. Denies blood in her stools nor any melena.) Associated symptoms: Fever, Dizzy, Loss of appetite. No: Abdominal pain, Melena, Hematochezia, Weight loss, Dysuria Contributing factors: No: Sick contact, Bad food, Travel, Recent antibiotics Improved by: No: Vomiting Worsened by: Eating Similar symptoms before: Has not had sx before (the viral symptoms are new; has general weakness due to anemia) Recently seen: Not recently seen Review of Systems Constitutional: reports: Fever, Chills, Myalgias, Fatigue Nose: reports: Congestion. denies: Rhinorrhea / runny nose Throat: denies: Sore throat Cardiac: denies: Chest pain / pressure Respiratory: denies: Cough GI: reports: Nausea, Vomiting, Diarrhea. denies: Abdominal Pain, Hematemesis, Bloody / black stool : denies: Dysuria, Frequency Neurologic: reports: Generalized weakness, Near syncope (posturally since yesterday). denies: Focal weakness, Altered mental status, Headache PD PAST MEDICAL HISTORY - Past Medical History Past Medical History: Yes Cardiovascular: Hypertension Respiratory: COPD, Shortness of breath Neuro: Migraines Endocrine/Autoimmune: None GI: None : None HEENT: Other Psych: None Musculoskeletal: Osteoarthritis Derm: None - Past Surgical History Past Surgical History: Yes - Present Medications Home Medications: Ambulatory Orders Medication Instructions Recorded Confirmed Ibuprofen [Motrin] 400 mg PO Q6H PRN 06/09/17 06/09/17 Clindamycin [Cleocin] 450 mg PO Q6HR 20 Days #240 capsule 06/10/17 Metoprolol Succinate [Toprol Xl] 50 mg PO DAILY #30 tablet 06/10/17 Saccharomyces Boulardii [Florastor] 250 mg PO BID 20 Days #40 capsule 06/10/17 amLODIPine [Norvasc] 5 mg PO DAILY #30 tablet 06/10/17 oxyCODONE/ACET 5/325 [Percocet 5 2 each PO Q6H PRN #42 tablet 06/10/17 mg/325 mg] Dexamethasone [Decadron] 4 mg PO DAILY #5 tablet 12/09/17 Ferrous Gluconate 324 mg PO BID #60 tablet 12/09/17 HYDROcod/ACETAM 5/325 [[place] 5/325] 1 tab PO Q6H PRN #20 tablet 12/09/17 Ondansetron HCl [Zofran] 4 mg PO Q6H PRN #20 tablet 12/09/17 Potassium Chloride 10 meq PO DAILY #20 tablet.er 12/09/17 - Allergies Allergies/Adverse Reactions: Allergies Allergy/AdvReac Type Severity Reaction Status Date / Time tramadol Allergy Unknown Verified 06/09/17 10:37 - Social History Does the pt smoke?: Yes Smoking Status: Current every day smoker Does the pt drink ETOH?: Yes ETOH Use: Beer Does the pt have substance abuse?: No - Immunizations Immunizations are current?: No Immunizations: TDAP >10years/unknown - POLST Patient has POLST: No POLST Status: Full Code PD ED PE NORMAL - Vitals Vital signs reviewed: Yes - General General: Alert and oriented X 3, No acute distress, Well developed/nourished - HEENT HEENT: Ears normal, Pharynx benign. No: Moist mucous membranes - Neck Neck: Supple, no meningeal sign, No adenopathy - Cardiac Cardiac: RRR, No murmur - Respiratory Respiratory: Clear bilaterally - Abdomen Abdomen: Normal bowel sounds, Soft, Non tender, Non distended - Female Female : Deferred - Rectal Rectal: Deferred - Back Back: No CVA TTP - Derm Derm: Normal color, Warm and dry - Extremities Extremities: Normal ROM s pain, No edema, No calf tenderness / cord - Neuro Neuro: Alert and oriented X 3, No motor deficit, Normal speech Results - Vitals Vitals: Vital Signs - 24 hr 12/09/17 12/09/17 12/09/17 12:04 13:07 16:38 Temperature 36.5 C 36.8 C Heart Rate 91 87 100 Respiratory 16 18 16 Rate Blood Pressure 150/95 H 137/87 H 147/92 H O2 Saturation 99 97 99 Oxygen O2 Source Room air - Labs Labs: Microbiology 12/09/17 13:50 Urine Culture - Preliminary Urine,Random Escherichia Coli Laboratory Tests 12/09/17 12/09/17 12/09/17 12:34 12:34 12:34 WBC 5.3 RBC 2.53 L Hgb 8.1 L Hct 23.3 L MCV 92.3 MCH 31.8 H MCHC 34.5 RDW 18.3 H Plt Count 212 MPV 7.4 L Reticulocyte % (Auto) Neut # (Auto) 4.7 Lymph # (Auto) 0.[address] [place] # (Auto) 0.2 Eos # (Auto) 0.1 Baso # (Auto) 0.0 Absolute Nucleated RBC 0.00 Nucleated RBC % 0.0 Absolute Retic Sodium 130 L Potassium 2.6 L Chloride 91 L Carbon Dioxide 30 Anion Gap 9.0 BUN 25 H Creatinine 0.6 Estimated GFR (MDRD) 105 Glucose 87 Calcium 9.3 Magnesium Iron TIBC % Saturation Transferrin Ferritin Total Bilirubin 0.7 AST 109 H ALT 61 H Alkaline Phosphatase 74 Lactate Dehydrogenase Troponin I Total Protein 7.3 Albumin 3.9 Globulin 3.4 Albumin/Globulin Ratio 1.1 Lipase 42 Vitamin B12 TSH 1.66 Urine Color Urine Clarity Urine pH Ur Specific [place] Urine Protein Urine Glucose (UA) Urine Ketones Urine Occult Blood Urine Nitrite Urine Bilirubin Urine Urobilinogen Ur Leukocyte Esterase Urine RBC Urine WBC Ur Squamous Epith Cells Urine Bacteria Ur Microscopic Review Urine Culture Comments Influenza A (Rapid) Influenza B (Rapid) 12/09/17 12/09/17 12/09/17 12:34 12:34 12:34 WBC RBC 2.50 L Hgb Hct MCV MCH MCHC RDW Plt Count MPV Reticulocyte % (Auto) 4.40 H Neut # (Auto) Lymph # (Auto) [place] # (Auto) Eos # (Auto) Baso # (Auto) Absolute Nucleated RBC Nucleated RBC % Absolute Retic 0.110 Sodium Potassium Chloride Carbon Dioxide Anion Gap BUN Creatinine Estimated GFR (MDRD) Glucose Calcium Magnesium 1.5 L Iron 31 TIBC 512 H % Saturation 6 L Transferrin 366 Ferritin Total Bilirubin AST ALT Alkaline Phosphatase Lactate Dehydrogenase Troponin I < 0.04 Total Protein Albumin Globulin Albumin/Globulin Ratio Lipase Vitamin B12 TSH Urine Color Urine Clarity Urine pH Ur Specific [place] Urine Protein Urine Glucose (UA) Urine Ketones Urine Occult Blood Urine Nitrite Urine Bilirubin Urine Urobilinogen Ur Leukocyte Esterase Urine RBC Urine WBC Ur Squamous Epith Cells Urine Bacteria Ur Microscopic Review Urine Culture Comments Influenza A (Rapid) Influenza B (Rapid) 12/09/17 12/09/17 12/09/17 12:34 12:34 13:00 WBC RBC Hgb Hct MCV MCH MCHC RDW Plt Count MPV Reticulocyte % (Auto) Neut # (Auto) Lymph # (Auto) [place] # (Auto) Eos # (Auto) Baso # (Auto) Absolute Nucleated RBC Nucleated RBC % Absolute Retic Sodium Potassium Chloride Carbon Dioxide Anion Gap BUN Creatinine Estimated GFR (MDRD) Glucose Calcium Magnesium Iron TIBC % Saturation Transferrin Ferritin 19.9 Total Bilirubin AST ALT Alkaline Phosphatase Lactate Dehydrogenase 140 Troponin I Total Protein Albumin Globulin Albumin/Globulin Ratio Lipase Vitamin B12 866 TSH Urine Color Urine Clarity Urine pH Ur Specific [place] Urine Protein Urine Glucose (UA) Urine Ketones Urine Occult Blood Urine Nitrite Urine Bilirubin Urine Urobilinogen Ur Leukocyte Esterase Urine RBC Urine WBC Ur Squamous Epith Cells Urine Bacteria Ur Microscopic Review Urine Culture Comments Influenza A (Rapid) Negative Influenza B (Rapid) Negative 12/09/17 13:50 WBC RBC Hgb Hct MCV MCH MCHC RDW Plt Count MPV Reticulocyte % (Auto) Neut # (Auto) Lymph # (Auto) [facility] # (Auto) Eos # (Auto) Baso # (Auto) Absolute Nucleated RBC Nucleated RBC % Absolute Retic Sodium Potassium Chloride Carbon Dioxide Anion Gap BUN Creatinine Estimated GFR (MDRD) Glucose Calcium Magnesium Iron TIBC % Saturation Transferrin Ferritin Total Bilirubin AST ALT Alkaline Phosphatase Lactate Dehydrogenase Troponin I Total Protein Albumin Globulin Albumin/Globulin Ratio Lipase Vitamin B12 TSH Urine Color YELLOW Urine Clarity CLEAR Urine pH 6.0 Ur Specific [place] 1.015 Urine Protein NEGATIVE Urine Glucose (UA) NEGATIVE Urine Ketones NEGATIVE Urine Occult Blood TRACE-INTA Urine Nitrite POSITIVE H Urine Bilirubin NEGATIVE Urine Urobilinogen 0.2 (NORMAL) Ur Leukocyte Esterase NEGATIVE Urine RBC 6-10 H Urine WBC 6-10 H Ur Squamous Epith Cells RARE Squamous Urine Bacteria Moderate H Ur Microscopic Review INDICATED Urine Culture Comments INDICATED Influenza A (Rapid) Influenza B (Rapid) PD MEDICAL DECISION MAKING - ED course Complexity details: reviewed old records, reviewed results, re-evaluated patient (she feels better with some fluids and potassium replacement), considered differential, d/w patient Departure - Departure Disposition: 01 Home, Self Care Clinical Impression: Flu-like symptoms, Hypokalemia, General weakness Anemia Qualifiers: Anemia type: iron deficiency Iron deficiency anemia type: unspecified iron deficiency Qualified Code(s): D50.9 - Iron deficiency anemia, unspecified Contusion, hip Qualifiers: Encounter type: initial encounter Laterality: left Qualified Code(s): S70.02XA - Contusion of left hip, initial encounter Condition: Stable Record reviewed to determine appropriate education?: Yes Instructions: ED Potassium Deficiency, ED Viral Syndrome Follow-Up: [facility] [Provider Group] Prescriptions: Dexamethasone [Decadron] 4 mg PO DAILY #5 tablet Ferrous Gluconate 324 mg PO BID #60 tablet HYDROcod/ACETAM 5/325 [[place] 5/325] 1 tab PO Q6H PRN #20 tablet PRN Reason: Pain Ondansetron HCl [Zofran] 4 mg PO Q6H PRN #20 tablet PRN Reason: Nausea / Vomiting Potassium Chloride 10 meq PO DAILY #20 tablet.er Comments: It sounds like you had a flu or viral type illness. Your potassium has gotten low likely from the vomiting urine had. Use a potassium supplement daily for the next couple of weeks. Ondansetron if needed for nausea. You are also anemic from iron deficiency and add a iron supplement daily for at least a month. For your hip pain, use Decadron anti-inflammatory daily for the next 5 days. Continue some ibuprofen 400 mg twice daily. Take all of that with food. Add hydrocodone if needed for pain. Follow-up with primary care clinic, call for an appointment. Discharge Date/Time: 12/09/17 16:38
[2017-12-09] MEDS ORDERED: SODIUM CHLORIDE 0.9% 1,000 ML IV ONE ×2 (12:48→12:52)
[2017-12-09] MEDS ORDERED: ONDANSETRON 4 MG/2 ML VIAL IVP STA (12:51)
[2017-12-09 13:13] LABS: BASOPHILS % (AUTO) 0.4 %; EOSINOPHILS # (AUTO) 0.1 10^3/uL (0.0-0.7); EOSINOPHILS % (AUTO) 1.1 %; HGB - HEMOGLOBIN 8.1 g/dL (12.0-16.0); LYMPHOCYTES # (AUTO) 0.3 10^3/uL (1.5-3.5); LYMPHOCYTES % (AUTO) 6.4 %; MEAN CORPUSCULAR HEMOGLOBIN 31.8 pg (27.0-31.0); MEAN CORPUSCULAR HGB CONC 34.5 g/dL (32.0-36.0); MEAN CORPUSCULAR VOLUME 92.3 fL (81.0-99.0); MEAN PLATELET VOLUME 7.4 fL (7.9-10.8); MONOCYTES # (AUTO) 0.2 10^3/uL (0.0-1.0); MONOCYTES % (AUTO) 3.9 %; NEUTROPHILS # (AUTO) 4.7 10^3/uL (1.5-6.6); NEUTROPHILS % (AUTO) 88.2 %; PLT - PLATELET COUNT 212 10^3/uL (130-450); RED BLOOD COUNT 2.53 10^6/uL (4.20-5.40); RED CELL DISTRIBUTION WIDTH 18.3 % (12.0-15.0); WHITE BLOOD COUNT 5.3 x10^3/uL (4.8-10.8)
[2017-12-09 13:22] LABS: ALBUMIN 3.9 g/dL (3.2-5.5); ALBUMIN/GLOBULIN RATIO 1.1 (1.0-2.2); BILIRUBIN,TOTAL 0.7 mg/dL (0.2-1.0); CALCIUM 9.3 mg/dL (8.5-10.3); CREATININE 0.6 mg/dL (0.4-1.0); TOTAL PROTEIN 7.3 g/dL (6.7-8.2)
[2017-12-09 14:02] LABS: BILIRUBIN,URINE NEGATIVE (NEGATIVE); GLUCOSE, URINE (UA) NEGATIVE (NEGATIVE); KETONES,URINE (UA) NEGATIVE (NEGATIVE); LEUKOCYTE ESTERASE, URINE NEGATIVE (NEGATIVE); NITRITE,URINE POSITIVE (NEGATIVE); OCCULT BLOOD,URINE TRACE-INTA (NEGATIVE); PROTEIN,URINE NEGATIVE (NEGATIVE); UROBILINOGEN,URINE 0.2 (NORMAL) E.U./dL (NORMAL)
[2017-12-09 14:03] LABS: CLARITY,URINE CLEAR (CLEAR)
[2017-12-09] MEDS ORDERED: POTASSIUM CHLOR 10 MEQ/100 ML 10 MEQ/100 ML BAG IV ONE (14:10)
[2017-12-09] MEDS ORDERED: POTASSIUM BICARB 25 MEQ TABLET PO STA (14:10)
[2017-12-09 14:25] LABS: BACTERIA,URINE Moderate /HPF (None Seen); SQUAMOUS EPITHELIAL CELL,UR RARE Squamous (<= Few)
[2017-12-09 14:27] LABS: RED BLOOD COUNT 2.5 10^6/uL (4.20-5.40)
[2017-12-09 14:51] LABS: MAGNESIUM 1.5 mg/dL (1.7-2.8)
[2017-12-09 14:55] LABS: FERRITIN 19.9 ng/mL (11.0-306.8)
--- NOTE | 2017-12-09 15:19 | XRAY Report ---
Reason: fell and struck hip a week ago Procedure Date: 12/09/2017 Accession Number: [id number] / [id number] Procedure: XR - Hip w/Pelvis 2-3V LT CPT Code: FULL RESULT: EXAM: LEFT HIP AND PELVIS RADIOGRAPHY EXAM DATE: 12/09/2017 03:05 PM. HISTORY: Left hip pain. COMPARISONS: None. TECHNIQUE: 1 view of the pelvis and 1 view of the hip. FINDINGS: Bones: Normal. No fracture or bone lesion. Joints: The bilateral hip, pubis symphysis, and sacroiliac joints are preserved. Soft Tissues: Normal. No soft tissue swelling. IMPRESSION: Normal pelvis and hip radiography. RADIA
[2017-12-09 16:40] VITALS: BP 147/92
== END 2017-12-09 16:38 | disposition home or self-care (01) ==
LOC: EDUNIT# → ED 12:00
DX: J11.1 Influenza due to unidentified influenza virus with other respiratory manifestations (principal); E87.6 Hypokalemia; R53.1 Weakness; D50.9 Iron deficiency anemia, unspecified; S70.02XA Contusion of left hip, initial encounter; X58.XXXA Exposure to other specified factors, initial encounter
CPT/HCPCS: 36415; 73502; 80053; 81001; 82607; 82728; 83540; 83615; 83690; 83735; 84443; 84466; 84484; 85025; 85044; 87086; 87181; 87275; 87276; 96361; 96374; 99283; 99284; A9270; 81003

== ENCOUNTER 2018-03-14 13:38 | Outpatient (CLI) | payer MEDICARE, MEDICAID | END 2018-03-14 13:39 | disposition critical access hospital (66) | LOC: EMS 13:38 | PROVIDERS: ATTEND Surgery | DX: R42 Dizziness and giddiness (principal); M25.552 Pain in left hip | CPT/HCPCS: A0425; A0429 ==

== ENCOUNTER 2018-03-14 13:58 | Emergency (ER) | payer MEDICARE, MEDICAID ==
[2018-03-14] MEDS ORDERED: FOLIC ACID INJ 1 MG, THIAMINE INJ 100 MG, MAGNESIUM SULFATE 2 GM, MULTIVITAMIN 10 ML in... IV STA ×5 (14:24)
--- NOTE | 2018-03-14 14:28 | ED Physician Documentation ---
History of Present Illness - Stated complaint Stated Complaint: DIZZY, FALL 4 MTHS AGO - Chief complaint Chief Complaint: Neuro - History obtained from History obtained from: Patient - History of Present Illness Timing: How many weeks ago (1) - Additonal information Additional information: 52-year-old female with a history of substance abuse has had a fall about 4 months ago has some pain in her left hip associated with that she has had multiple evaluations of this which is shown a bruise of her femur on MRI exam. Today she is complaining of this pain in her hip and being lightheaded and dizzy. She states that lightheaded dizziness something she has been experiencing for the past week she has had fainting episodes.She reports that she drinks water and lemonade to compensate for the alcohol she drinks. She reports she is not homeless and she was picked up at the [facility]. Review of Systems Constitutional: denies: Fever Eyes: denies: Decreased vision Ears: denies: Ear pain Nose: denies: Rhinorrhea / runny nose, Congestion Throat: denies: Sore throat Cardiac: denies: Chest pain / pressure, Palpitations Respiratory: denies: Dyspnea, Cough GI: denies: Abdominal Pain, Nausea, Vomiting : denies: Dysuria, Frequency Skin: denies: Rash Musculoskeletal: denies: Neck pain, Back pain, Extremity pain Neurologic: reports: Other (light headed and dizzy). 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 : None HEENT: Other Psych: None Musculoskeletal: Osteoarthritis Derm: None - Past Surgical History Past Surgical History: Yes - Present Medications Home Medications: Ambulatory Orders Medication Instructions Recorded Confirmed Ibuprofen [Motrin] 400 mg PO Q6H PRN 06/09/17 03/14/18 Metoprolol Succinate [Toprol Xl] 50 mg PO DAILY #30 tablet 06/10/17 Saccharomyces Boulardii [Florastor] 250 mg PO BID 20 Days #40 capsule 06/10/17 amLODIPine [Norvasc] 5 mg PO DAILY #30 tablet 06/10/17 oxyCODONE/ACET 5/325 [Percocet 5 2 each PO Q6H PRN #42 tablet 06/10/17 mg/325 mg] Ferrous Gluconate 324 mg PO BID #60 tablet 12/09/17 HYDROcod/ACETAM 5/325 [[place] 5/325] 1 tab PO Q6H PRN #20 tablet 12/09/17 Ondansetron HCl [Zofran] 4 mg PO Q6H PRN #20 tablet 12/09/17 Potassium Chloride 10 meq PO DAILY #20 tablet.er 12/09/17 Potassium Chloride 10 meq PO BID #20 tablet.er 03/14/18 - Allergies Allergies/Adverse Reactions: Allergies Allergy/AdvReac Type Severity Reaction Status Date / Time tramadol Allergy Unknown Verified 03/14/18 14:25 - Social History Does the pt smoke?: Yes Smoking Status: Current every day smoker Does the pt drink ETOH?: Yes Does the pt have substance abuse?: No - Immunizations Immunizations are current?: No Immunizations: TDAP >10years/unknown - POLST Patient has POLST: No POLST Status: Full Code PD ED PE NORMAL - Vitals Vital signs reviewed: Yes (hypertensive ) - General General: Alert and oriented X 3, No acute distress, Well developed/nourished - HEENT HEENT: Atraumatic, PERRL, EOMI, Ears normal, Other (dry mucous membranes and AOB) - Neck Neck: Supple, no meningeal sign, No bony TTP - Cardiac Cardiac: RRR, No murmur - Respiratory Respiratory: No respiratory distress, Clear bilaterally - Abdomen Abdomen: Soft, Non tender - Back Back: No CVA TTP, No spinal TTP - Derm Derm: Normal color, Warm and dry, No rash - Extremities Extremities: No deformity, No edema - Neuro Neuro: Alert and oriented X 3, 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, No motor deficit, No sensory deficit, Normal speech Eye Opening: Spontaneous Motor: Obeys Commands Verbal: Oriented GCS Score: 15 - Psych Psych: Normal mood, Normal affect Results - Vitals Vitals: Vital Signs - 24 hr 03/14/18 03/14/18 14:01 16:02 Temperature 35.9 C L Heart Rate 83 66 Respiratory 16 16 Rate Blood Pressure 175/98 H 158/100 H O2 Saturation 100 97 Oxygen O2 Source Room air - EKG (time done) 1407 Rate: Rate (enter#) (82) Rhythm: NSR Intervals: Prolonged QT Ischemia: Normal ST segments, Other (early transition) Computer interpretation: Agree with computer - Labs Labs: Laboratory Tests 03/14/18 03/14/18 03/14/18 14:20 14:55 14:55 WBC 6.3 RBC 3.95 L Hgb 9.8 L Hct 30.4 L MCV 77.0 L MCH 24.8 L MCHC 32.2 RDW 19.8 H Plt Count 353 MPV 6.3 L Neut # (Auto) 4.4 Lymph # (Auto) 1.1 L [place] # (Auto) 0.6 Eos # (Auto) 0.2 Baso # (Auto) 0.1 Absolute Nucleated RBC 0.00 Nucleated RBC % 0.0 Sodium 136 Potassium 2.8 L Chloride 95 L Carbon Dioxide 27 Anion Gap 14.0 H BUN 21 H Creatinine 0.8 Estimated GFR (MDRD) 75 L Glucose 89 Calcium 9.4 Total Bilirubin 0.3 AST 85 H ALT 53 Alkaline Phosphatase 88 Troponin I Total Protein 8.7 H Albumin 4.2 Globulin 4.5 H Albumin/Globulin Ratio 0.9 L Lipase 215 H Urine Color YELLOW Urine Clarity CLEAR Urine pH 6.0 Ur Specific [place] 1.010 Urine Protein NEGATIVE Urine Glucose (UA) NEGATIVE Urine Ketones NEGATIVE Urine Occult Blood TRACE-INTA Urine Nitrite NEGATIVE Urine Bilirubin NEGATIVE Urine Urobilinogen 0.2 (NORMAL) Ur Leukocyte Esterase NEGATIVE Ur Microscopic Review NOT INDICATED Urine Culture Comments NOT INDICATED Ethyl Alcohol 233.9 03/14/18 14:55 WBC RBC Hgb Hct MCV MCH MCHC RDW Plt Count MPV Neut # (Auto) Lymph # (Auto) [place] # (Auto) Eos # (Auto) Baso # (Auto) Absolute Nucleated RBC Nucleated RBC % Sodium Potassium Chloride Carbon Dioxide Anion Gap BUN Creatinine Estimated GFR (MDRD) Glucose Calcium Total Bilirubin AST ALT Alkaline Phosphatase Troponin I < 0.04 Total Protein Albumin Globulin Albumin/Globulin Ratio Lipase Urine Color Urine Clarity Urine pH Ur Specific [place] Urine Protein Urine Glucose (UA) Urine Ketones Urine Occult Blood Urine Nitrite Urine Bilirubin Urine Urobilinogen Ur Leukocyte Esterase Ur Microscopic Review Urine Culture Comments Ethyl Alcohol Procedures - IVC sono (time) 1420 Bedside IVC sono: IVC measures (cm) (1.08), IVC collapsed c insp (cm) (complete), Dehydration (est 1-2 liter deficit) PD MEDICAL DECISION MAKING - ED course Complexity details: reviewed old records, reviewed results, re-evaluated patient, considered differential, d/w patient ED course: 52-year-old female with a history of substance abuse comes to the emergency department today with a chief complaint of lightheadedness and dizziness and she is found to have a blood alcohol well over 250 and hypokalemia as well as a depleted volume. She is administered intravenous fluid in the form of a banana bag and intravenous potassium and oral potassium. Departure - Departure Disposition: 01 Home, Self Care Clinical Impression: Dehydration, Hypokalemia Alcohol intoxication Qualifiers: Complication of substance-induced condition: uncomplicated Qualified Code(s): F10.920 - Alcohol use, unspecified with intoxication, uncomplicated Condition: Stable Instructions: Diet High Potassium Dc, ED Dehydration, ED Alcohol Intoxication Follow-Up: [facility] [Provider Group] Prescriptions: Potassium Chloride 10 meq PO BID #20 tablet.er
[2018-03-14 14:35] LABS: BILIRUBIN,URINE NEGATIVE (NEGATIVE); GLUCOSE, URINE (UA) NEGATIVE (NEGATIVE); KETONES,URINE (UA) NEGATIVE (NEGATIVE); LEUKOCYTE ESTERASE, URINE NEGATIVE (NEGATIVE); NITRITE,URINE NEGATIVE (NEGATIVE); OCCULT BLOOD,URINE TRACE-INTA (NEGATIVE); PROTEIN,URINE NEGATIVE (NEGATIVE); UROBILINOGEN,URINE 0.2 (NORMAL) E.U./dL (NORMAL)
[2018-03-14 14:37] LABS: CLARITY,URINE CLEAR (CLEAR)
[2018-03-14] MEDS ORDERED: THIAMINE 100 MG/1 ML 2 ML MDV ONE (14:47)
[2018-03-14 15:03] LABS: BASOPHILS # (AUTO) 0.1 10^3/uL (0.0-0.1); BASOPHILS % (AUTO) 1.1 %; EOSINOPHILS # (AUTO) 0.2 10^3/uL (0.0-0.7); EOSINOPHILS % (AUTO) 2.9 %; HGB - HEMOGLOBIN 9.8 g/dL (12.0-16.0); LYMPHOCYTES # (AUTO) 1.1 10^3/uL (1.5-3.5); LYMPHOCYTES % (AUTO) 17.2 %; MEAN CORPUSCULAR HEMOGLOBIN 24.8 pg (27.0-31.0); MEAN CORPUSCULAR HGB CONC 32.2 g/dL (32.0-36.0); MEAN PLATELET VOLUME 6.3 fL (7.9-10.8); MONOCYTES # (AUTO) 0.6 10^3/uL (0.0-1.0); MONOCYTES % (AUTO) 8.8 %; NEUTROPHILS # (AUTO) 4.4 10^3/uL (1.5-6.6); PLT - PLATELET COUNT 353 10^3/uL (130-450); RED BLOOD COUNT 3.95 10^6/uL (4.20-5.40); RED CELL DISTRIBUTION WIDTH 19.8 % (12.0-15.0); WHITE BLOOD COUNT 6.3 x10^3/uL (4.8-10.8)
[2018-03-14 15:15] LABS: ALBUMIN 4.2 g/dL (3.2-5.5); ALBUMIN/GLOBULIN RATIO 0.9 (1.0-2.2); BILIRUBIN,TOTAL 0.3 mg/dL (0.2-1.0); CALCIUM 9.4 mg/dL (8.5-10.3); CREATININE 0.8 mg/dL (0.4-1.0); TOTAL PROTEIN 8.7 g/dL (6.7-8.2)
[2018-03-14] MEDS ORDERED: POTASSIUM BICARB 25 MEQ TABLET PO STA ×2 (15:21→15:35)
[2018-03-14] MEDS ORDERED: POTASSIUM CHLOR 10 MEQ/100 ML 10 MEQ/100 ML BAG IV ONE (15:21)
[2018-03-14 16:51] VITALS: BP 174/98
== END 2018-03-14 16:49 | disposition home or self-care (01) ==
LOC: EDUNIT# → ED 13:58
DX: E86.0 Dehydration (principal); E87.6 Hypokalemia; F10.920 Alcohol use, unspecified with intoxication, uncomplicated; Y90.8 Blood alcohol level of 240 mg/100 ml or more; M25.552 Pain in left hip; F17.200 Nicotine dependence, unspecified, uncomplicated; I10 Essential (primary) hypertension; I45.81 Long QT syndrome
CPT/HCPCS: 36415; 80053; 81003; 83690; 84484; 85025; 93005; 96365; 96367; 99284; A9270; J3411; 80320; 81001; 87086

== ENCOUNTER 2018-04-21 14:59 | Outpatient (CLI) | payer MEDICARE, MEDICAID | END 2018-04-21 15:00 | disposition critical access hospital (66) | LOC: EMS 14:59 | PROVIDERS: ATTEND Surgery | DX: R11.0 Nausea (principal); R10.9 Unspecified abdominal pain | CPT/HCPCS: A0425; A0427 ==

== ENCOUNTER 2018-04-21 15:20 | Emergency (ER) | payer MEDICARE, MEDICAID ==
[2018-04-21] MEDS ORDERED: LORazepam 2 MG/ML VIAL IVP STA ×2 (15:31→20:17)
[2018-04-21] MEDS ORDERED: PANTOPRAZOLE 40 MG VIAL IVP STA (15:31)
[2018-04-21] MEDS ORDERED: THIAMINE INJ 100 MG in SODIUM CHLORIDE 0.9% 50 ML IV STA (15:31)
[2018-04-21] MEDS ORDERED: diphenhydrAMINE INJ 50 MG/ML VIAL IVP STA (15:31)
--- NOTE | 2018-04-21 15:34 | ED Physician Documentation ---
PD HPI ABD PAIN - Stated complaint Stated Complaint: NAUSEA - Chief complaint Chief Complaint: Abd Pain - History obtained from History obtained from: Patient, EMS - History of Present Illness Timing - onset: Other (She quit drinking 2 days ago and is feeling shaky and withdrawing. She had some visual hallucinations yesterday. Today she is itchy all over without rash. She also admits to smoking methamphetamines 2 days ago. She would like help with quitting alcohol. 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 : None HEENT: Other Psych: None Musculoskeletal: Osteoarthritis Derm: None - Past Surgical History Past Surgical History: Yes - Present Medications Home Medications: Ambulatory Orders Medication Instructions Recorded Confirmed Ibuprofen [Motrin] 400 mg PO Q6H PRN 06/09/17 03/14/18 Metoprolol Succinate [Toprol Xl] 50 mg PO DAILY #30 tablet 06/10/17 Saccharomyces Boulardii [Florastor] 250 mg PO BID 20 Days #40 capsule 06/10/17 amLODIPine [Norvasc] 5 mg PO DAILY #30 tablet 06/10/17 oxyCODONE/ACET 5/325 [Percocet 5 2 each PO Q6H PRN #42 tablet 06/10/17 mg/325 mg] Ferrous Gluconate 324 mg PO BID #60 tablet 12/09/17 HYDROcod/ACETAM 5/325 [[place] 5/325] 1 tab PO Q6H PRN #20 tablet 12/09/17 Ondansetron HCl [Zofran] 4 mg PO Q6H PRN #20 tablet 12/09/17 Potassium Chloride 10 meq PO DAILY #20 tablet.er 12/09/17 Potassium Chloride 10 meq PO BID #20 tablet.er 03/14/18 Lorazepam [Ativan] 1 mg PO TID PRN #15 tablet 04/21/18 Omeprazole 20 mg PO DAILY #30 capsule. 04/21/18 Ondansetron Odt [Zofran] 4 mg TL Q6H PRN #10 tablet 04/21/18 Potassium Chloride 10 meq PO BID #10 tablet.er 04/21/18 - Allergies Allergies/Adverse Reactions: Allergies Allergy/AdvReac Type Severity Reaction Status Date / Time tramadol Allergy Unknown Verified 04/21/18 15:25 - Social History Does the pt smoke?: Yes Smoking Status: Current every day smoker Does the pt drink ETOH?: Yes Does the pt have substance abuse?: No - Immunizations Immunizations are current?: No Immunizations: TDAP >10years/unknown - POLST Patient has POLST: No POLST Status: Full Code PD ED PE NORMAL - Vitals Vital signs reviewed: Yes (Hypertensive) - General General: Alert and oriented X 3, Other (Hyperactive) - HEENT HEENT: PERRL, EOMI - Neck Neck: Supple, no meningeal sign, No bony TTP - Cardiac Cardiac: RRR, No murmur - Respiratory Respiratory: No respiratory distress, Clear bilaterally - Abdomen Abdomen: Normal bowel sounds, Soft, Non tender - Rectal Rectal: Other (With Perla RN, dark but brown guaiac neg stool, QC pass) - Back Back: No CVA TTP, No spinal TTP - Derm Derm: Normal color, Warm and dry - Extremities Extremities: No edema, No calf tenderness / cord - Neuro Neuro: Alert and oriented X 3, Other (Tremulous) Eye Opening: Spontaneous Motor: Obeys Commands Verbal: Oriented GCS Score: 15 - Psych Psych: Normal mood, Normal affect Results - Vitals Vitals: Vital Signs - 24 hr 04/21/18 04/21/18 04/21/18 15:22 16:14 16:15 Temperature 36.8 C 36.8 C Heart Rate 97 105 H Respiratory 18 15 Rate Blood Pressure 206/101 H 199/116 H 199/116 H O2 Saturation 100 100 04/21/18 17:36 Temperature Heart Rate 100 Respiratory 20 Rate Blood Pressure 161/109 H O2 Saturation 96 Oxygen O2 Source Room air - Labs Labs: Laboratory Tests 04/21/18 04/21/18 04/21/18 15:40 15:47 15:47 WBC 5.5 RBC 3.53 L Hgb 8.3 L Hct 26.4 L MCV 74.8 L MCH 23.5 L MCHC 31.4 L RDW 21.7 H Plt Count 179 MPV 6.8 L Neut # (Auto) 4.7 Lymph # (Auto) 0.1 L [place] # (Auto) 0.6 Eos # (Auto) 0.0 Baso # (Auto) 0.0 Absolute Nucleated RBC 0.00 Nucleated RBC % 0.0 Manual Slide Review Indicated Platelet Estimate NORMAL (130-450,000) Platelet Morphology NORMAL APPEARANCE RBC Morph Micro Appear 2+ HYPOCHROMASIA PT 12.5 INR 1.1 Sodium Potassium Chloride Carbon Dioxide Anion Gap BUN Creatinine Estimated GFR (MDRD) Glucose Calcium Magnesium 1.5 L Total Bilirubin AST ALT Alkaline Phosphatase Total Protein Albumin Globulin Albumin/Globulin Ratio Lipase Urine Color Urine Clarity Urine pH Ur Specific [place] Urine Protein Urine Glucose (UA) Urine Ketones Urine Occult Blood Urine Nitrite Urine Bilirubin Urine Urobilinogen Ur Leukocyte Esterase Ur Microscopic Review Urine Culture Comments Urine Opiates Screen Ur Oxycodone Screen Urine Methadone Screen Ur Propoxyphene Screen Ur Barbiturates Screen Ur Tricyclics Screen Ur Phencyclidine Scrn Ur Amphetamine Screen U Methamphetamines Scrn U Benzodiazepines Scrn Urine Cocaine Screen U Cannabinoids Screen Ethyl Alcohol Blood Type Antibody Screen 04/21/18 04/21/18 04/21/18 15:47 15:47 16:30 WBC RBC Hgb Hct MCV MCH MCHC RDW Plt Count MPV Neut # (Auto) Lymph # (Auto) [place] # (Auto) Eos # (Auto) Baso # (Auto) Absolute Nucleated RBC Nucleated RBC % Manual Slide Review Platelet Estimate Platelet Morphology RBC Morph Micro Appear PT INR Sodium 132 L Potassium 2.3 L* Chloride 91 L Carbon Dioxide 24 Anion Gap 17.0 H BUN 18 Creatinine 0.8 Estimated GFR (MDRD) 75 L Glucose 74 Calcium 9.3 Magnesium Total Bilirubin 1.2 H AST 145 H ALT 60 Alkaline Phosphatase 73 Total Protein 8.1 Albumin 4.3 Globulin 3.8 Albumin/Globulin Ratio 1.1 Lipase 32 Urine Color YELLOW Urine Clarity CLEAR Urine pH 6.5 Ur Specific [place] 1.015 Urine Protein TRACE Urine Glucose (UA) NEGATIVE Urine Ketones 15 H Urine Occult Blood TRACE-LYSE Urine Nitrite NEGATIVE Urine Bilirubin NEGATIVE Urine Urobilinogen 0.2 (NORMAL) Ur Leukocyte Esterase NEGATIVE Ur Microscopic Review NOT INDICATED Urine Culture Comments NOT INDICATED Urine Opiates Screen NEGATIVE Ur Oxycodone Screen NEGATIVE Urine Methadone Screen NEGATIVE Ur Propoxyphene Screen NEGATIVE Ur Barbiturates Screen NEGATIVE Ur Tricyclics Screen NEGATIVE Ur Phencyclidine Scrn NEGATIVE Ur Amphetamine Screen POSITIVE H U Methamphetamines Scrn POSITIVE H U Benzodiazepines Scrn NEGATIVE Urine Cocaine Screen NEGATIVE U Cannabinoids Screen NEGATIVE Ethyl Alcohol < 5.0 Blood Type O POSITIVE Antibody Screen NEGATIVE PD MEDICAL DECISION MAKING - ED course ED course: This is a 52-year-old woman undergoing alcohol withdrawal, her symptoms were pretty easy to treat here. She also received both oral and IV potassium supplementation and IV magnesium and thiamine supplementation. She was accepted to [facility] for social detox. Departure - Departure Disposition: 01 Home, Self Care Clinical Impression: Methamphetamine abuse Nicotine dependence Qualifiers: Nicotine product type: cigarettes Substance use status: uncomplicated Qualified Code(s): F17.210 - Nicotine dependence, cigarettes, uncomplicated Alcohol withdrawal Qualifiers: Complication of substance-induced condition: uncomplicated Qualified Code(s): F10.230 - Alcohol dependence with withdrawal, uncomplicated Condition: Stable Record reviewed to determine appropriate education?: Yes Instructions: ED Withdrawal Alcohol Prescriptions: Lorazepam [Ativan] 1 mg PO TID PRN #15 tablet PRN Reason: Anxiety Omeprazole 20 mg PO DAILY #30 capsule. Ondansetron Odt [Zofran] 4 mg TL Q6H PRN #10 tablet PRN Reason: Nausea / Vomiting Potassium Chloride 10 meq PO BID #10 tablet.er Comments: Your blood pressure was elevated today on check into the emergency department. This does not mean that you have hypertension, it is a common phenomenon to come to the emergency department and have elevated blood pressure. I recommend that you see your primary care physician within the week to have it rechecked when you are feeling better.
[2018-04-21 15:56] LABS: BASOPHILS % (AUTO) 0.8 %; EOSINOPHILS % (AUTO) 0.3 %; HGB - HEMOGLOBIN 8.3 g/dL (12.0-16.0); LYMPHOCYTES # (AUTO) 0.1 10^3/uL (1.5-3.5); LYMPHOCYTES % (AUTO) 1.5 %; MEAN CORPUSCULAR HEMOGLOBIN 23.5 pg (27.0-31.0); MEAN CORPUSCULAR HGB CONC 31.4 g/dL (32.0-36.0); MEAN CORPUSCULAR VOLUME 74.8 fL (81.0-99.0); MEAN PLATELET VOLUME 6.8 fL (7.9-10.8); MONOCYTES # (AUTO) 0.6 10^3/uL (0.0-1.0); MONOCYTES % (AUTO) 11.1 %; NEUTROPHILS # (AUTO) 4.7 10^3/uL (1.5-6.6); NEUTROPHILS % (AUTO) 86.3 %; PLT - PLATELET COUNT 179 10^3/uL (130-450); RED BLOOD COUNT 3.53 10^6/uL (4.20-5.40); RED CELL DISTRIBUTION WIDTH 21.7 % (12.0-15.0); WHITE BLOOD COUNT 5.5 x10^3/uL (4.8-10.8)
[2018-04-21 15:58] LABS: INR 1.1 (0.8-1.2); PT - PROTHROMBIN TIME 12.5 secs (9.9-12.6)
[2018-04-21] MEDS ORDERED: POTASSIUM CHLOR 10 MEQ/100 ML 10 MEQ/100 ML BAG IV ONE (16:11)
[2018-04-21] MEDS ORDERED: POTASSIUM BICARB 25 MEQ TABLET PO STA ×2 (16:11→17:24)
[2018-04-21 16:12] LABS: ALBUMIN 4.3 g/dL (3.2-5.5); ALBUMIN/GLOBULIN RATIO 1.1 (1.0-2.2); ALKALINE PHOSPHATASE 73 IU/L (42-121); ALT ALANINE AMINOTRANSFERASE 60 IU/L (10-60); AST ASPARTATE AMINOTRANSFERASE 145 IU/L (10-42); BILIRUBIN,TOTAL 1.2 mg/dL (0.2-1.0); BUN - BLOOD UREA NITROGEN 18 mg/dL (6-20); CALCIUM 9.3 mg/dL (8.5-10.3); CARBON DIOXIDE - CO2 24 mmol/L (21-32); CHLORIDE 91 mmol/L (101-111); CREATININE 0.8 mg/dL (0.4-1.0); GFR - MDRD 75 (>89); GLUCOSE 74 mg/dL (70-100); LIPASE 32 U/L (22-51); SODIUM 132 mmol/L (135-145); TOTAL PROTEIN 8.1 g/dL (6.7-8.2)
[2018-04-21] MEDS ORDERED: MAGNESIUM SULFATE 2 GRAM 2 GM/50 ML BAG IV ONE (16:30)
[2018-04-21 16:35] LABS: MUDS CUTOFF CONCENTRATIONS CUTOFF CONC BELOW:
[2018-04-21 16:51] LABS: BILIRUBIN,URINE NEGATIVE (NEGATIVE); GLUCOSE, URINE (UA) NEGATIVE (NEGATIVE); KETONES,URINE (UA) 15 mg/dL (NEGATIVE); LEUKOCYTE ESTERASE, URINE NEGATIVE (NEGATIVE); NITRITE,URINE NEGATIVE (NEGATIVE); OCCULT BLOOD,URINE TRACE-LYSE (NEGATIVE); PH,URINE 6.5 PH (5.0-7.5); PROTEIN,URINE TRACE mg/dL (NEGATIVE); UROBILINOGEN,URINE 0.2 (NORMAL) E.U./dL (NORMAL)
[2018-04-21 16:56] LABS: CLARITY,URINE CLEAR (CLEAR)
[2018-04-21 17:02] LABS: BENZODIAZEPINES SCREEN, URINE NEGATIVE (NEGATIVE); COCAINE SCREEN URINE NEGATIVE (NEGATIVE); METHADONE SCREEN, URINE NEGATIVE (NEGATIVE); OPIATE SCREEN, URINE NEGATIVE (NEGATIVE); OXYCODONE SCREEN, URINE NEGATIVE (NEGATIVE); PROPOXYPHENE SCREEN, URINE NEGATIVE (NEGATIVE); TRICYCLIC ANTIDEPRESSANT,URINE NEGATIVE (NEGATIVE)
[2018-04-21 17:03] LABS: AMPHETAMINE SCREEN,URINE POSITIVE (NEGATIVE); METHAMPHETAMINES SCREEN, URINE POSITIVE (NEGATIVE)
[2018-04-21 17:07] LABS: PLATELET ESTIMATE, MANUAL NORMAL (130-450,000) (NORMAL); PLATELET MORPHOLOGY NORMAL APPEARANCE (NORMAL)
[2018-04-21 22:14] VITALS: BP 172/91
== END 2018-04-21 22:14 | disposition home or self-care (01) ==
LOC: EDUNIT# → ED 15:20
DX: F10.230 Alcohol dependence with withdrawal, uncomplicated (principal); F15.10 Other stimulant abuse, uncomplicated; F17.210 Nicotine dependence, cigarettes, uncomplicated; I10 Essential (primary) hypertension; J44.9 Chronic obstructive pulmonary disease, unspecified
CPT/HCPCS: 36415; 80053; 81003; 83690; 83735; 85025; 85610; 86850; 86900; 86901; 96365; 96366; 96368; 96375; 99283; 99284; A9270; J1200; J2060; J3411; J7040; 80306; 80320; 81001; 87086

== ENCOUNTER 2018-11-24 00:47 | Outpatient (CLI) | payer MEDICARE, MEDICAID | END 2018-11-24 00:48 | disposition critical access hospital (66) | LOC: EMS 00:47 | PROVIDERS: ATTEND Surgery | DX: R53.1 Weakness (principal); R41.9 Unspecified symptoms and signs involving cognitive functions and awareness | CPT/HCPCS: A0425; A0429 ==

== ENCOUNTER 2018-11-24 01:03 | Emergency (ER) | payer MEDICARE, MEDICAID ==
--- NOTE | 2018-11-24 01:12 | ED Physician Documentation ---
History of Present Illness - Stated complaint Stated Complaint: ANXIETY - Chief complaint Chief Complaint: MHE - History obtained from History obtained from: Patient, EMS - History of Present Illness Timing: Prior to arrival - Additonal information Additional information: Woman who presents in ambulanceFor a mental health evaluation. She does have a history of meth use and today was at the police department refusing to leave because she says that people are destroying her house and she needs a health department to come out and look at it because it is not in habitable. There are some reports that she might of been nude while at the police department and she comes dressed in a set of paper scrubs. She says that there are 2 people that are repeatedly coming to her home and destroying things and smoking drugs. She is told him not come back but they keep coming in. She does have a history of smoking and tells me that she drinks as much as she can get her hands on she has not drink today because she does not have any money and she did use some sort of drugs with these people that are destroying her home earlier in the day to day. She says she recognizes that the police are trying to get her committed and states that she is crazy but that she has a real public health crisis at her apartment that she needs a department of help to come out and evaluate. She cannot get anybody listen to her though. Denies acute physical illness, other than her feet burning and painful. 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 : None HEENT: Other Psych: None Musculoskeletal: Osteoarthritis Derm: None - Past Surgical History Past Surgical History: Yes - Present Medications Home Medications: Ambulatory Orders Medication Instructions Recorded Confirmed Ibuprofen [Motrin] 400 mg PO Q6H PRN 06/09/17 03/14/18 Metoprolol Succinate [Toprol Xl] 50 mg PO DAILY #30 tablet 06/10/17 Saccharomyces Boulardii [Florastor] 250 mg PO BID 20 Days #40 capsule 06/10/17 amLODIPine [Norvasc] 5 mg PO DAILY #30 tablet 06/10/17 oxyCODONE/ACET 5/325 [Percocet 5 2 each PO Q6H PRN #42 tablet 06/10/17 mg/325 mg] Ferrous Gluconate 324 mg PO BID #60 tablet 12/09/17 HYDROcod/ACETAM 5/325 [[place] 5/325] 1 tab PO Q6H PRN #20 tablet 12/09/17 Ondansetron HCl [Zofran] 4 mg PO Q6H PRN #20 tablet 12/09/17 Potassium Chloride 10 meq PO DAILY #20 tablet.er 12/09/17 Potassium Chloride 10 meq PO BID #20 tablet.er 03/14/18 Lorazepam [Ativan] 1 mg PO TID PRN #15 tablet 04/21/18 Omeprazole 20 mg PO DAILY #30 capsule. 04/21/18 Ondansetron Odt [Zofran] 4 mg TL Q6H PRN #10 tablet 04/21/18 Potassium Chloride 10 meq PO BID #10 tablet.er 04/21/18 Olanzapine [Zyprexa] 5 mg PO DAILY #30 tablet 11/25/18 - Allergies Allergies/Adverse Reactions: Allergies Allergy/AdvReac Type Severity Reaction Status Date / Time tramadol Allergy Unknown Verified 04/21/18 15:25 - Social History Does the pt smoke?: Yes Smoking Status: Current every day smoker Does the pt drink ETOH?: Yes Does the pt have substance abuse?: No - Immunizations Immunizations are current?: No Immunizations: TDAP >10years/unknown - POLST Patient has POLST: No POLST Status: Full Code PD ED PE NORMAL - Vitals Vital signs reviewed: Yes - General General: Other (When I am in the room the patient was gesticulating wildly with her arms and talking to the air. She immediately engaged with me to let me know that a whole bunch of things were wrong. She had very pressured speech and was very furtively covering her feet so that I would not look at them) - HEENT HEENT: Atraumatic, PERRL, Moist mucous membranes - Neck Neck: No adenopathy, Thyroid normal - Cardiac Cardiac: RRR, No murmur, Strong equal pulses - Respiratory Respiratory: No respiratory distress, Other (There are some scattered wheezes heard in all lung yanez.) - Abdomen Abdomen: Normal bowel sounds, Soft, Non tender, Non distended - Derm Derm: Normal color, Warm and dry, Other (When we got her feet uncovered there was a strong smell of bleach. The top surfaces of her toes on the left foot skin was very pink but not quite raw. There are no open wounds.) - Neuro Neuro: Other (She is oriented only to person and place. No obvious neurological deficit she is moving all extremities equally) - Psych Psych: Other (Agitated with pressured speech. Gesticulating wildly. Has apparent hallucinations) Results - Vitals Vitals: Vital Signs - 24 hr 11/25/18 11/25/18 02:20 08:58 Temperature 36.8 C 36.7 C Heart Rate 82 82 Respiratory 16 16 Rate Blood Pressure 226/114 H 217/104 H O2 Saturation 100 100 Oxygen O2 Source Room air - Labs Labs: Laboratory Tests 11/24/18 11/24/18 11/24/18 01:55 01:55 01:55 WBC 4.3 L RBC 3.55 L Hgb 7.5 L Hct 25.7 L MCV 72.4 L MCH 21.1 L MCHC 29.2 L RDW 19.9 H Plt Count 253 MPV 8.3 Neut # (Auto) 3.1 Lymph # (Auto) 0.7 L Yell # (Auto) 0.4 Eos # (Auto) 0.0 Baso # (Auto) 0.0 Absolute Nucleated RBC 0.00 Nucleated RBC % 0.0 Sodium 135 Potassium 3.0 L Chloride 95 L Carbon Dioxide 26 Anion Gap 14.0 H BUN 27 H Creatinine 0.8 Estimated GFR (MDRD) 75 L Glucose 68 L Calcium 9.2 Total Bilirubin 0.8 AST 78 H ALT 42 Alkaline Phosphatase 94 Total Protein 8.0 Albumin 4.1 Globulin 3.9 Albumin/Globulin Ratio 1.1 Lipase 28 TSH 1.50 Urine Color Urine Clarity Urine pH Ur Specific [place] Urine Protein Urine Glucose (UA) Urine Ketones Urine Occult Blood Urine Nitrite Urine Bilirubin Urine Urobilinogen Ur Leukocyte Esterase Ur Microscopic Review Urine Culture Comments Salicylates < 6.0 Urine Opiates Screen Ur Oxycodone Screen Urine Methadone Screen Ur Propoxyphene Screen Acetaminophen < 10 L Ur Barbiturates Screen Ur Tricyclics Screen Ur Phencyclidine Scrn Ur Amphetamine Screen U Methamphetamines Scrn U Benzodiazepines Scrn Urine Cocaine Screen U Cannabinoids Screen Ethyl Alcohol < 5.0 11/24/18 02:00 WBC RBC Hgb Hct MCV MCH MCHC RDW Plt Count MPV Neut # (Auto) Lymph # (Auto) Yell # (Auto) Eos # (Auto) Baso # (Auto) Absolute Nucleated RBC Nucleated RBC % Sodium Potassium Chloride Carbon Dioxide Anion Gap BUN Creatinine Estimated GFR (MDRD) Glucose Calcium Total Bilirubin AST ALT Alkaline Phosphatase Total Protein Albumin Globulin Albumin/Globulin Ratio Lipase TSH Urine Color YELLOW Urine Clarity CLEAR Urine pH 6.0 Ur Specific [place] 1.020 Urine Protein TRACE Urine Glucose (UA) NEGATIVE Urine Ketones TRACE Urine Occult Blood TRACE-INTA Urine Nitrite NEGATIVE Urine Bilirubin NEGATIVE Urine Urobilinogen 0.2 (NORMAL) Ur Leukocyte Esterase NEGATIVE Ur Microscopic Review NOT INDICATED Urine Culture Comments NOT INDICATED Salicylates Urine Opiates Screen NEGATIVE Ur Oxycodone Screen NEGATIVE Urine Methadone Screen NEGATIVE Ur Propoxyphene Screen NEGATIVE Acetaminophen Ur Barbiturates Screen NEGATIVE Ur Tricyclics Screen NEGATIVE Ur Phencyclidine Scrn NEGATIVE Ur Amphetamine Screen POSITIVE H U Methamphetamines Scrn POSITIVE H U Benzodiazepines Scrn NEGATIVE Urine Cocaine Screen NEGATIVE U Cannabinoids Screen NEGATIVE Ethyl Alcohol PD MEDICAL DECISION MAKING - ED course Complexity details: reviewed results, d/w patient ED course: Positive for amphetamines and methamphetamines. She is anemic with a hemoglobin of 7.5 but she is chronically anemic in the low eights. She was aware of this fact and has not followed up with a primary care provider regarding it. She is up and ambulating in the department and is asymptomatic. She declined an albuterol treatment stating that they did not help her anyway. Due to her agitation I did give her 1 mg of Ativan IV And she was medicated with potassium orally for hypokalemia. Following the Ativan the patient remained restless in the room occasionally up and pacing around but then also very somnolent. When I went in to arouse her to discuss her labs she kept falling asleep trying to talk to me. She felt that she was not safe at home because she is been thinking about harming herself given her current living situation with her apartment "destroyed". I am not sure how much of her current psychosis is due to the methamphetamine or to an underlying psychiatric disorder. She will be monitored here in the emergency department until she is more awake and not under the influence of the drugs to be reevaluated. Care will be turned over to the daytime emergency department physician for follow-up. [id number]: I arrived back on shift tonight and Mónica was still here. She is much more lucid and although still talking about people being in her apartment and it not being safe. Nursing staff made contact with the police department who are very familiar with Mónica and they said that her apartment is safe. They do not have any concerns about her safety at in that facility. Social work had been attempting and had indicated to Mónica that they would have placement for her however facilities are unwilling to take her because she is a flight risk. This was discussed with Mónica she is not suicidal she just does not want to go back to her apartment which we have been assured is safe. She was agreeable to contact crisis center and see if they had a bed for her tonight which she is in the process of doing now. When I mentioned going back home she said she did not have a way there but we can arrange for her to be transported back to her house. I have overheard her conversations on the phone and she is very clear although still little paranoid that someone is in her home. It was subsequently communicated to me that social work had Found placement for the patient on a voluntary basis however they refused to take her because she had received IV Ativan. As soon as 24 hours had elapsed from the IV and she had not required any further IV "sedation" than they would accept her in transfer. She was given Zyprexa orally tonight. Her blood pressure spiked again and she was given metoprolol and plan for transfer when appropriate. Departure - Departure Disposition: 01 Home, Self Care Clinical Impression: Methamphetamine abuse, Affective psychosis Condition: Stable Follow-Up: [facility] [Provider Group] [facility] [Provider Group] [facility] [Provider Group] Prescriptions: Olanzapine [Zyprexa] 5 mg PO DAILY #30 tablet Comments: Call [facility] for follow-up counseling and help with psychological services. Call [facility] of [facility] for a new patient appointment to obtain a primary care provider. Meanwhile stay well-hydrated. Avoid meth use. Take Zyprexa nightly to help with general symptoms. Follow-up at the soonest appointment at the clinics. Discharge Date/Time: 11/25/18 09:24
[2018-11-24] MEDS ORDERED: LORazepam 2 MG/ML VIAL IVP STA ×2 (01:54→12:23)
[2018-11-24 02:04] LABS: BASOPHILS % (AUTO) 0.7 %; EOSINOPHILS % (AUTO) 0.7 %; HGB - HEMOGLOBIN 7.5 g/dL (12.0-16.0); LYMPHOCYTES # (AUTO) 0.7 10^3/uL (1.5-3.5); LYMPHOCYTES % (AUTO) 17.3 %; MEAN CORPUSCULAR HEMOGLOBIN 21.1 pg (27.0-31.0); MEAN CORPUSCULAR HGB CONC 29.2 g/dL (32.0-36.0); MEAN CORPUSCULAR VOLUME 72.4 fL (81.0-99.0); MEAN PLATELET VOLUME 8.3 fL (7.9-10.8); MONOCYTES # (AUTO) 0.4 10^3/uL (0.0-1.0); MONOCYTES % (AUTO) 9.1 %; NEUTROPHILS # (AUTO) 3.1 10^3/uL (1.5-6.6); NEUTROPHILS % (AUTO) 71.7 %; PLT - PLATELET COUNT 253 10^3/uL (130-450); RED BLOOD COUNT 3.55 10^6/uL (4.20-5.40); RED CELL DISTRIBUTION WIDTH 19.9 % (12.0-15.0); WHITE BLOOD COUNT 4.3 x10^3/uL (4.8-10.8)
[2018-11-24 02:06] LABS: MUDS CUTOFF CONCENTRATIONS CUTOFF CONC BELOW:
[2018-11-24 02:08] LABS: BILIRUBIN,URINE NEGATIVE (NEGATIVE); GLUCOSE, URINE (UA) NEGATIVE (NEGATIVE); KETONES,URINE (UA) TRACE mg/dL (NEGATIVE); LEUKOCYTE ESTERASE, URINE NEGATIVE (NEGATIVE); NITRITE,URINE NEGATIVE (NEGATIVE); OCCULT BLOOD,URINE TRACE-INTA (NEGATIVE); PROTEIN,URINE TRACE mg/dL (NEGATIVE); UROBILINOGEN,URINE 0.2 (NORMAL) E.U./dL (NORMAL)
[2018-11-24 02:09] LABS: CLARITY,URINE CLEAR (CLEAR)
[2018-11-24 02:18] LABS: ACETAMINOPHEN < 10 ug/mL (10-30); ALBUMIN 4.1 g/dL (3.2-5.5); ALBUMIN/GLOBULIN RATIO 1.1 (1.0-2.2); ALKALINE PHOSPHATASE 94 IU/L (42-121); ALT ALANINE AMINOTRANSFERASE 42 IU/L (10-60); AST ASPARTATE AMINOTRANSFERASE 78 IU/L (10-42); BILIRUBIN,TOTAL 0.8 mg/dL (0.2-1.0); BUN - BLOOD UREA NITROGEN 27 mg/dL (6-20); CALCIUM 9.2 mg/dL (8.5-10.3); CARBON DIOXIDE - CO2 26 mmol/L (21-32); CHLORIDE 95 mmol/L (101-111); CREATININE 0.8 mg/dL (0.4-1.0); GFR - MDRD 75 (>89); GLUCOSE 68 mg/dL (70-100); LIPASE 28 U/L (22-51); SALICYLATE < 6.0 mg/dL; SODIUM 135 mmol/L (135-145)
[2018-11-24 02:18] LABS: AMPHETAMINE SCREEN,URINE POSITIVE (NEGATIVE); BENZODIAZEPINES SCREEN, URINE NEGATIVE (NEGATIVE); COCAINE SCREEN URINE NEGATIVE (NEGATIVE); METHADONE SCREEN, URINE NEGATIVE (NEGATIVE); METHAMPHETAMINES SCREEN, URINE POSITIVE (NEGATIVE); OPIATE SCREEN, URINE NEGATIVE (NEGATIVE); OXYCODONE SCREEN, URINE NEGATIVE (NEGATIVE); PROPOXYPHENE SCREEN, URINE NEGATIVE (NEGATIVE); TRICYCLIC ANTIDEPRESSANT,URINE NEGATIVE (NEGATIVE)
[2018-11-24] MEDS ORDERED: POTASSIUM CHLORIDE 20 MEQ TABLET PO STA (03:14)
[2018-11-24] MEDS ORDERED: NICOTINE 14 MG PATCH TOP STA (09:53)
[2018-11-24] MEDS ORDERED: OLANZapine ODT 5 MG TABLET TL ONE (11:54)
[2018-11-24] MEDS ORDERED: LORazepam 2 MG/ML VIAL IM STA (11:55)
[2018-11-25] MEDS ORDERED: OLANZapine ODT 5 MG TABLET TL ONE (02:25)
[2018-11-25 08:59] VITALS: BP 217/104
[2018-11-25] MEDS ORDERED: METOPROLOL SUCCINATE 50 MG TABLET PO SCH (09:00)
--- NOTE | 2018-11-25 09:12 | ED Physician Documentation ---
ED Addendum - Addendum Addendum: 11/25/18 09:10 Patient is feeling better today without depression or suicidal ideation. She is feeling better and thought process. Social work met with her and they contracted for safety. The patient does not feel she needs hospitalization still. She does request medication to help her with sleep and thought process. She is also requesting referral for primary care. She previously had had reasonable improvement with daily Zyprexa. She said trazodone did not really help. I can prescribe her some medication in the short-term and have her follow-up with counseling and primary care. Diagnoses #1 acute psychosis related to meth use #2 underlying schizoaffective disorder Disposition patient discharged home stable
== END 2018-11-25 09:24 | disposition home or self-care (01) ==
LOC: EDBD → EDUNIT# → ED 01:03
DX: F15.151 Other stimulant abuse with stimulant-induced psychotic disorder with hallucinations (principal); F25.9 Schizoaffective disorder, unspecified; E87.6 Hypokalemia; D64.9 Anemia, unspecified; I10 Essential (primary) hypertension; J44.9 Chronic obstructive pulmonary disease, unspecified; F17.200 Nicotine dependence, unspecified, uncomplicated
CPT/HCPCS: 36415; 81003; 83690; 96374; 96376; 99281; 99283; A9270; J2060; 80053; 80306; 80307; 80320; 80329; 81001; 84443; 85025; 87086